=== PATIENT | female | born 1980 | race Caucasian/White ===

== ENCOUNTER 2017-04-15 10:19 | Emergency (ER) | payer SELFPAY ==
[2017-04-15 11:04] LABS: Basophils % (Auto) 0.4 % (0.0-1.8); Eosinophils % (Auto) 0.2 % (0.0-4.3); Hematocrit 38.7 % (30.3-42.9); Hemoglobin 12.9 gm/dl (10.1-14.3); Mean Corpuscular HGB Conc 33 % (30-34); Mean Corpuscular Hemoglobin 31 pg (28-32); Mean Corpuscular Volume 92 fl (79-97); Platelet Count 175 K/mm3 (140-440); Red Blood Count 4.21 M/mm3 (3.65-5.03); Red Cell Distribution Width 12.5 % (13.2-15.2); White Blood Count 3.3 K/mm3 (4.5-11.0)
[2017-04-15 11:24] LABS: Alanine Aminotransferase 14 units/L (7-56); Alkaline Phosphatase 74 units/L (35-129); Anion Gap 17 mmol/L; BUN/Creatinine Ratio 11.66; Blood Urea Nitrogen 7 mg/dL (7-17); Calcium 8.5 mg/dL (8.4-10.2); Carbon Dioxide 23 mmol/L (22-30); Glucose 91 mg/dL (65-100); Lipase 54 units/L (13-60); Potassium 3.6 mmol/L (3.6-5.0); Sodium 137 mmol/L (137-145)
[2017-04-15 11:25] LABS: Bilirubin,Urine NEG (Negative); Blood,Urine NEG (Negative); Ketones,Urine NEG (Negative); Leukocyte Esterase,Urine SM (Negative); Mucus,Urine 3+ /HPF; Nitrite,Urine NEG (Negative); Urobilinogen,Urine < 2.0 mg/dL (<2.0)
[2017-04-15] MEDS ORDERED: ZOFRAN IV ONE (11:46)
[2017-04-15] MEDS ORDERED: NACL 0.9% 1000 ML 1,000 ML IV ONE (11:46)
--- NOTE | 2017-04-15 11:53 | Emergency Department Report ---
HPI - General Chief Complaint: Nausea/Vomiting/Diarrhea Time Seen by Provider: 04/15/17 11:31 - HPI HPI: Room 8 The patient is a 36-year-old female presenting with chief complaint of feeling weak and tired. Patient states for one week she has felt weak and tired. Patient states he lost approximately 20 pounds over the past 2 months. Patient admits to subjective fever. Patient states for the past 2 days she's had nausea and vomiting and possible diarrhea. Patient complains of pain in the left side for one month which has been intermittent. Location: [see above] Duration: [see above] Quality: Fatigue Severity: Currently 0/10 Modifying factors: [see above] Context: [see above] Mode of transportation: Unknown ED Past Medical Hx - Past Medical History Hx Hypertension: Yes (stopped meds last year) Additional medical history: Sarcoidosis - Surgical History Past Surgical History?: No Additional Surgical History: lithotripsy 2014 - Family History Family history: no significant - Social History Smoking Status: Current Every Day Smoker (1/3 pack per day) Substance Use Type: None (denies illicit drug use) - Medications Home Medications: Home Medications Medication Instructions Recorded Confirmed Last Taken Type Nitrofurantoin [place]/M-Cryst 100 mg PO Q12HR #14 capsule 04/15/17 Unknown Rx [Macrobid CAP] Ondansetron [Zofran ODT TAB] 8 mg PO Q8HR #20 tab.rapdis 04/15/17 Unknown Rx Vit-Fe Fumar-FA [ 1 tab PO QDAY #90 tablet 04/15/17 Unknown Rx Vitamin] ED Review of Systems ROS: Stated complaint: N/V X 1 WK Other details as noted in HPI Comment: All other systems reviewed and negative Constitutional: fever, malaise. denies: chills Eyes: denies: eye pain, eye discharge, vision change ENT: denies: ear pain, throat pain Respiratory: cough (chronic dry cough times multiple years). denies: shortness of breath, wheezing Cardiovascular: denies: chest pain, palpitations Endocrine: no symptoms reported Gastrointestinal: nausea, vomiting, diarrhea Genitourinary: denies: urgency, dysuria, discharge Musculoskeletal: back pain Skin: denies: rash, lesions Neurological: denies: headache, weakness, paresthesias Psychiatric: denies: anxiety, depression Hematological/Lymphatic: denies: easy bleeding, easy bruising Physical Exam - Physical Exam Vital Signs: Vital Signs 04/15/17 10:33 Temperature 98.6 F Pulse Rate 66 Respiratory 18 Rate Blood Pressure 127/94 O2 Sat by Pulse 98 Oximetry Physical Exam: GENERAL: The patient is well-developed well-nourished female lying on stretcher not appearing to be in acute distress. [] HEENT: Normocephalic. Atraumatic. Extraocular motions are intact. Patient has moist mucous membranes. NECK: Supple. Trachea midline CHEST/LUNGS: Clear to auscultation. There is no respiratory distress noted. HEART/CARDIOVASCULAR: Regular. There is no tachycardia. There is no gallop rub or murmur. ABDOMEN: Abdomen is soft, with mild discomfort to palpation in the right lower quadrant. There is no rebound or guarding. Patient has normal bowel sounds. There is no abdominal distention. SKIN: There is no rash. There is no edema. There is no diaphoresis. NEURO: The patient is awake, alert, and oriented. The patient is cooperative. The patient has normal speech MUSCULOSKELETAL: There is no CVA tenderness. There is no evidence of acute injury. ED Course Vital Signs 04/15/17 10:33 Temperature 98.6 F Pulse Rate 66 Respiratory 18 Rate Blood Pressure 127/94 O2 Sat by Pulse 98 Oximetry ED Medical Decision Making - Lab Data Result diagrams: 04/15/17 10:54 04/15/17 10:54 Laboratory Tests 04/15/17 04/15/17 04/15/17 10:47 10:54 10:54 WBC 3.3 L RBC 4.21 Hgb 12.9 Hct 38.7 MCV 92 MCH 31 MCHC 33 RDW 12.5 L Plt Count 175 Lymph % (Auto) 35.6 H [place] % (Auto) 15.4 H Eos % (Auto) 0.2 Baso % (Auto) 0.4 Lymph # 1.2 [place] # 0.5 Eos # 0.0 Baso # 0.0 Seg Neutrophils % 48.4 Seg Neutrophils # 1.6 L Sodium 137 Potassium 3.6 Chloride 101.0 Carbon Dioxide 23 Anion Gap 17 BUN 7 Creatinine 0.6 L Estimated GFR > 60 BUN/Creatinine Ratio 11.66 Glucose 91 Calcium 8.5 Total Bilirubin 0.40 AST 20 ALT 14 Alkaline Phosphatase 74 Total Protein 8.0 Albumin 4.0 Albumin/Globulin Ratio 1.0 Lipase 54 TSH Free T4 HCG, Qual HCG, Quant Urine Color Yellow Urine Turbidity Clear Urine pH 6.0 Ur Specific [place] 1.021 Urine Protein 100 mg/dl Urine Glucose (UA) Neg Urine Ketones Neg Urine Blood Neg Urine Nitrite Neg Urine Bilirubin Neg Urine Urobilinogen < 2.0 Ur Leukocyte Esterase Sm Urine WBC (Auto) 23.0 H Urine RBC (Auto) 10.0 U Epithel Cells (Auto) 2.0 Urine Mucus 3+ 04/15/17 04/15/17 04/15/17 10:54 11:40 11:40 WBC RBC Hgb Hct MCV MCH MCHC RDW Plt Count Lymph % (Auto) [place] % (Auto) Eos % (Auto) Baso % (Auto) Lymph # [place] # Eos # Baso # Seg Neutrophils % Seg Neutrophils # Sodium Potassium Chloride Carbon Dioxide Anion Gap BUN Creatinine Estimated GFR BUN/Creatinine Ratio Glucose Calcium Total Bilirubin AST ALT Alkaline Phosphatase Total Protein Albumin Albumin/Globulin Ratio Lipase TSH 1.250 Free T4 1.31 HCG, Qual Positive HCG, Quant 1446 H Urine Color Urine Turbidity Urine pH Ur Specific [place] Urine Protein Urine Glucose (UA) Urine Ketones Urine Blood Urine Nitrite Urine Bilirubin Urine Urobilinogen Ur Leukocyte Esterase Urine WBC (Auto) Urine RBC (Auto) U Epithel Cells (Auto) Urine Mucus - Radiology Data Radiology results: report reviewed (pelvic ultrasound), image reviewed (pelvic ultrasound) Pelvic ultrasound (rubber radiologist)-probable uterine gestational sac. Follow -up beta hCG or ultrasound recommended. - Differential Diagnosis , ectopic , hypothyroidism, immunocompromise Critical care attestation.: If time is entered above; I have spent that time in minutes in the direct care of this critically ill patient, excluding procedure time. ED Disposition Clinical Impression: , Nausea & vomiting, Leukopenia, UTI (urinary tract infection) Disposition: DC-01 TO HOME OR SELFCARE Is pt being admited?: No Does the pt Need Aspirin: No Condition: Stable Instructions: (ED) Additional Instructions: Return to the emergency department immediately should you develop worsening symptoms, fever, inability to tolerate food or liquid or any other concerns. Prescriptions: Nitrofurantoin [place]/M-Cryst [Macrobid CAP] 100 mg PO Q12HR #14 capsule Ondansetron [Zofran ODT TAB] 8 mg PO Q8HR #20 tab.rapdis Vit-Fe Fumar-FA [ Vitamin] 1 tab PO QDAY #90 tablet Referrals: DELPHINE MCCORMICK MD [Staff Physician] - 3-5 Days MARIPOSA CHILDS MD [Staff Physician] - [place] (Dr. Childs is an [employer]. Please follow up with him further evaluation of your ) Time of Disposition: 14:25
[2017-04-15 12:24] VITALS: BP 129/84
--- NOTE | 2017-04-15 14:20 | Ultrasound Report ---
FINAL REPORT EXAM: US OB \T\lt; = 14 WEEKS FETUS HISTORY: left flank pain, TECHNIQUE: Real time transabdominal and transvaginal pelvic ultrasound. Initially, transabdominal scanning was performed. Subsequently, transvaginal scanning was performed to better evaluate the uterus and ovaries. PRIORS: None FINDINGS: Intrauterine fluid collection with decidual reaction probably represents an early gestational sac. pole and yolk sac are not seen, however. No cardiac activity apparent. Estimated age 5 weeks 1 day, sonographic EDC 12/15/2017. Small uterine fibroid measures less than a centimeter in size. Right ovary measures 3.9 x 2.8 x 2.4 cm and contains a complex 3.2 cm lesion likely a corpus luteum. Left ovary measures 3.1 x 1.6 x 3.6 cm and appears normal. IMPRESSION: 1. Probable intrauterine gestational sac. Follow-up beta hCG or ultrasound recommended.
--- NOTE | 2017-04-15 14:21 | Ultrasound Report ---
FINAL REPORT EXAM: US OB TRANSVAGINAL HISTORY: left flank pain, TECHNIQUE: Real time transabdominal and transvaginal pelvic ultrasound. Initially, transabdominal scanning was performed. Subsequently, transvaginal scanning was performed to better evaluate the uterus and ovaries. PRIORS: None FINDINGS: Intrauterine fluid collection with decidual reaction probably represents an early gestational sac. pole and yolk sac are not seen, however. No cardiac activity apparent. Estimated age 5 weeks 1 day, sonographic EDC 12/15/2017. Small uterine fibroid measures less than a centimeter in size. Right ovary measures 3.9 x 2.8 x 2.4 cm and contains a complex 3.2 cm lesion likely a corpus luteum. Left ovary measures 3.1 x 1.6 x 3.6 cm and appears normal. IMPRESSION: 1. Probable intrauterine gestational sac. Follow-up beta hCG or ultrasound recommended.
== END 2017-04-15 15:12 | disposition home or self-care (01) ==
LOC: ED 10:19
DX: O23.41 Unspecified infection of urinary tract in pregnancy, first trimester (principal); O99.331 Smoking (tobacco) complicating pregnancy, first trimester; D72.819 Decreased white blood cell count, unspecified; Z3A.01 Less than 8 weeks gestation of pregnancy; I10 Essential (primary) hypertension
CPT/HCPCS: 36415; 76801; 76817; 80053; 81001; 83690; 84439; 84443; 84702; 84703; 85025; 96361; 96374; 99284; J2405; J7030

== ENCOUNTER 2017-04-19 02:54 | Emergency (ER) | payer SELFPAY ==
[2017-04-19 03:33] VITALS: BP 110/70
[2017-04-19 04:39] LABS: Hematocrit 35.4 % (30.3-42.9); Hemoglobin 11.7 gm/dl (10.1-14.3); Mean Corpuscular HGB Conc 33 % (30-34); Mean Corpuscular Hemoglobin 31 pg (28-32); Mean Corpuscular Volume 92 fl (79-97); Platelet Count 170 K/mm3 (140-440); Red Blood Count 3.84 M/mm3 (3.65-5.03); Red Cell Distribution Width 12.4 % (13.2-15.2); White Blood Count 3.4 K/mm3 (4.5-11.0)
[2017-04-19 04:58] LABS: Alanine Aminotransferase 12 units/L (7-56); Albumin 3.8 g/dL (3.9-5); Alkaline Phosphatase 62 units/L (35-129); Anion Gap 19 mmol/L; Blood Urea Nitrogen 9 mg/dL (7-17); Calcium 8.8 mg/dL (8.4-10.2); Carbon Dioxide 22 mmol/L (22-30); Chloride 101.8 mmol/L (98-107); Glucose 99 mg/dL (65-100); Lipase 98 units/L (13-60); Potassium 3.5 mmol/L (3.6-5.0); Sodium 139 mmol/L (137-145); Total Protein 7.5 g/dL (6.3-8.2)
[2017-04-19 05:01] LABS: Basophils % (Auto) 0.4 % (0.0-1.8); Eosinophils % (Auto) 1.3 % (0.0-4.3)
[2017-04-19 05:02] LABS: Diff Status Complete
[2017-04-19] MEDS ORDERED: XANAX ONE (07:45)
== END 2017-04-19 03:50 | disposition left against medical advice (07) ==
LOC: ED 02:54
DX: R10.9 Unspecified abdominal pain (principal); R11.2 Nausea with vomiting, unspecified; Z53.21 Procedure and treatment not carried out due to patient leaving prior to being seen by health care provider
CPT/HCPCS: 36415; 80053; 83690; 85025

== ENCOUNTER 2017-05-09 10:42 | Emergency (ER) | payer SELFPAY ==
[2017-05-09 10:57] VITALS: BP 133/94
[2017-05-09 11:17] LABS: Basophils % (Auto) 0.5 % (0.0-1.8); Eosinophils % (Auto) 0.7 % (0.0-4.3); Hemoglobin 12.5 gm/dl (10.1-14.3); Mean Corpuscular HGB Conc 33 % (30-34); Mean Corpuscular Hemoglobin 31 pg (28-32); Mean Corpuscular Volume 93 fl (79-97); Platelet Count 227 K/mm3 (140-440); Red Blood Count 4.09 M/mm3 (3.65-5.03)
[2017-05-09 11:37] LABS: Alanine Aminotransferase 12 units/L (7-56); Albumin 4.3 g/dL (3.9-5); Albumin/Globulin Ratio 1.2 %; Alkaline Phosphatase 52 units/L (35-129); Anion Gap 19 mmol/L; Blood Urea Nitrogen 10 mg/dL (7-17); Calcium 9.2 mg/dL (8.4-10.2); Carbon Dioxide 23 mmol/L (22-30); Chloride 98.8 mmol/L (98-107); Glucose 116 mg/dL (65-100); Potassium 3.7 mmol/L (3.6-5.0); Sodium 137 mmol/L (137-145); Total Protein 7.9 g/dL (6.3-8.2)
[2017-05-09] MEDS ORDERED: ZOFRAN ODT PO ONE (15:02)
[2017-05-09] MEDS ORDERED: REGLAN PO ONE (16:10)
--- NOTE | 2017-05-09 16:11 | Emergency Department Report ---
ED General Adult HPI - General Chief complaint: Nausea/Vomiting/Diarrhea Stated complaint: VOMITING Time Seen by Provider: 05/09/17 15:53 Source: patient Mode of arrival: Ambulatory Limitations: No Limitations - History of Present Illness Initial comments: is a 36-year-old female no significant past medical problems who presents with nausea and vomiting this been going on for the last couple days. Patient states that her symptoms are severe. Food makes it worse rest makes it better. Patient states that her vomit has been nonbloody nonbilious. Patient denies being in any abdominal pain. Patient has also had some light diarrhea. She denies having any fevers or chills. The onset of her vomiting was gradual she is vomited multiple times and she states she is not able to keep down by mouth. - Related Data Previous Rx's Medication Instructions Recorded Last Taken Type Nitrofurantoin [place]/M-Cryst 100 mg PO Q12HR #14 capsule 04/15/17 Unknown Rx [Macrobid CAP] Ondansetron [Zofran ODT TAB] 8 mg PO Q8HR #20 tab.rapdis 04/15/17 Unknown Rx Vit-Fe Fumar-FA [ 1 tab PO QDAY #90 tablet 04/15/17 Unknown Rx Vitamin] Metoclopramide HCl [Reglan TAB] 5 mg PO Q8HR PRN #25 tablet 05/09/17 Unknown Rx Allergies Allergy/AdvReac Type Severity Reaction Status Date / Time codeine AdvReac Hives Verified 04/15/17 10:33 ED Review of Systems ROS: Stated complaint: VOMITING Other details as noted in HPI Constitutional: denies: chills, fever Eyes: denies: eye pain, eye discharge, vision change ENT: denies: ear pain, throat pain Respiratory: denies: cough, shortness of breath, wheezing Cardiovascular: denies: chest pain, palpitations Endocrine: no symptoms reported Gastrointestinal: nausea, vomiting, diarrhea. denies: abdominal pain Genitourinary: denies: urgency, dysuria, discharge Musculoskeletal: denies: back pain, joint swelling, arthralgia Skin: denies: rash, lesions Neurological: denies: headache, weakness, paresthesias Psychiatric: denies: anxiety, depression Hematological/Lymphatic: denies: easy bleeding, easy bruising ED Past Medical Hx - Past Medical History Hx Hypertension: Yes (stopped meds last year) Additional medical history: Sarcoidosis - Surgical History Additional Surgical History: lithotripsy 2015 - Social History Smoking Status: Former Smoker Substance Use Type: None - Medications Home Medications: Home Medications Medication Instructions Recorded Confirmed Last Taken Type Nitrofurantoin [place]/M-Cryst 100 mg PO Q12HR #14 capsule 04/15/17 Unknown Rx [Macrobid CAP] Ondansetron [Zofran ODT TAB] 8 mg PO Q8HR #20 tab.rapdis 04/15/17 Unknown Rx Vit-Fe Fumar-FA [ 1 tab PO QDAY #90 tablet 04/15/17 Unknown Rx Vitamin] Metoclopramide HCl [Reglan TAB] 5 mg PO Q8HR PRN #25 tablet 05/09/17 Unknown Rx ED Physical Exam - General Limitations: No Limitations General appearance: alert, in no apparent distress - Head Head exam: Present: atraumatic, normocephalic - Eye Eye exam: Present: normal appearance - ENT ENT exam: Present: mucous membranes moist - Neck Neck exam: Present: normal inspection - Respiratory Respiratory exam: Present: normal lung sounds bilaterally. Absent: respiratory distress - Cardiovascular Cardiovascular Exam: Present: regular rate, normal rhythm. Absent: systolic murmur, diastolic murmur, rubs, gallop - GI/Abdominal GI/Abdominal exam: Present: soft, normal bowel sounds - Extremities Exam Extremities exam: Present: normal inspection - Back Exam Back exam: Present: normal inspection - Neurological Exam Neurological exam: Present: alert, oriented X3 - Psychiatric Psychiatric exam: Present: normal affect, normal mood - Skin Skin exam: Present: warm, dry, intact, normal color. Absent: rash ED Course Vital Signs 05/09/17 10:53 Temperature 97.8 F Pulse Rate 91 H Respiratory 18 Rate Blood Pressure 133/94 O2 Sat by Pulse 99 Oximetry ED Medical Decision Making - Lab Data Result diagrams: 05/09/17 11:03 05/09/17 11:03 Lab Results 05/09/17 05/09/17 05/09/17 Range/Units 11:03 11:03 16:08 WBC 5.0 (4.5-11.0) K/mm3 RBC 4.09 (3.65-5.03) M/mm3 Hgb 12.5 (10.1-14.3) gm/dl Hct 38.0 (30.3-42.9) % MCV 93 (79-97) fl MCH 31 (28-32) pg MCHC 33 (30-34) % RDW 13.0 L (13.2-15.2) % Plt Count 227 (140-440) K/mm3 Lymph % (Auto) 28.8 (13.4-35.0) % [place] % (Auto) 11.5 H (0.0-7.3) % Eos % (Auto) 0.7 (0.0-4.3) % Baso % (Auto) 0.5 (0.0-1.8) % Lymph # 1.4 (1.2-5.4) K/mm3 [place] # 0.6 (0.0-0.8) K/mm3 Eos # 0.0 (0.0-0.4) K/mm3 Baso # 0.0 (0.0-0.1) K/mm3 Seg Neutrophils % 58.5 (40.0-70.0) % Seg Neutrophils # 2.9 (1.8-7.7) K/mm3 Sodium 137 (137-145) mmol/L Potassium 3.7 (3.6-5.0) mmol/L Chloride 98.8 (98-107) mmol/L Carbon Dioxide 23 (22-30) mmol/L Anion Gap 19 mmol/L BUN 10 (7-17) mg/dL Creatinine 0.5 L (0.7-1.2) mg/dL Estimated GFR > 60 ml/min BUN/Creatinine Ratio 20.00 % Glucose 116 H (65-100) mg/dL Calcium 9.2 (8.4-10.2) mg/dL Total Bilirubin 0.60 (0.1-1.2) mg/dL AST 15 (5-40) units/L ALT 12 (7-56) units/L Alkaline Phosphatase 52 (35-129) units/L Total Protein 7.9 (6.3-8.2) g/dL Albumin 4.3 (3.9-5) g/dL Albumin/Globulin Ratio 1.2 % Urine Color Yellow (Yellow) Urine Turbidity Clear (Clear) Urine pH 6.0 (5.0-7.0) Ur Specific [place] 1.023 (1.003-1.030) Urine Protein 30 mg/dl (Negative) mg/dL Urine Glucose (UA) Neg (Negative) mg/dL Urine Ketones Neg (Negative) mg/dL Urine Blood Neg (Negative) Urine Nitrite Neg (Negative) Urine Bilirubin Neg (Negative) Urine Urobilinogen < 2.0 (<2.0) mg/dL Ur Leukocyte Esterase Mod (Negative) Urine WBC (Auto) 12.0 H (0.0-6.0) /HPF Urine RBC (Auto) 2.0 (0.0-6.0) /HPF U Epithel Cells (Auto) 14.0 H (0-13.0) /HPF Urine Mucus Few /HPF - Medical Decision Making Chief medical diagnosis: Gastroenteritis Differential medical diagnosis: Pancreatitis, peptic ulcer, hypokalemia, hypernatremia I will get CBC, CMP, urinalysis, oral antiemetics and I will evaluate and see if the patient can go home. She has feeling better after oral anti-emetics. I will send the patient home. Critical care attestation.: If time is entered above; I have spent that time in minutes in the direct care of this critically ill patient, excluding procedure time. ED Disposition Clinical Impression: Nausea and vomiting Qualifiers: Vomiting type: unspecified Vomiting Intractability: non-intractable Qualified Code(s): R11.2 - Nausea with vomiting, unspecified Disposition: DC-01 TO HOME OR SELFCARE Is pt being admited?: No Does the pt Need Aspirin: No Condition: Stable Instructions: Acute Nausea and Vomiting (ED) Prescriptions: Metoclopramide HCl [Reglan TAB] 5 mg PO Q8HR PRN #25 tablet PRN Reason: Nausea Referrals: PRIMARY CARE,MD [Primary Care Provider] - 3-5 Days
[2017-05-09 16:33] LABS: Bilirubin,Urine NEG (Negative); Blood,Urine NEG (Negative); Ketones,Urine NEG (Negative); Leukocyte Esterase,Urine MOD (Negative); Mucus,Urine FEW /HPF; Nitrite,Urine NEG (Negative); Urobilinogen,Urine < 2.0 mg/dL (<2.0)
== END 2017-05-09 17:25 | disposition home or self-care (01) ==
LOC: ED 10:42
DX: R11.2 Nausea with vomiting, unspecified (principal); Z88.6 Allergy status to analgesic agent; Z87.891 Personal history of nicotine dependence
CPT/HCPCS: 36415; 80053; 81001; 85025; 99283; Q0162

== ENCOUNTER 2017-09-01 02:39 | Emergency (ER) | payer OTHER ==
[2017-09-01 03:13] VITALS: BP 119/69
--- NOTE | 2017-09-01 04:19 | XRay Report ---
FINAL REPORT EXAM: XR FOOT 2V LT HISTORY: Left foot pain and swelling post injury COMPARISONS: None. FINDINGS: Two nonweightbearing views left foot There is subtle cortical irregularity at the lateral base of the 1st distal phalanx and at the plantar aspect of the 1st distal phalanx midportion on lateral view. No other potential acute fracture. Remaining joint spaces are unremarkable. A developmental versus remote posttraumatic ossicle measuring up to 5 millimeters is noted at the distal aspect of the lateral malleolus. IMPRESSION: Possible minimally displaced fracture at the base of the 1st distal phalanx.
[2017-09-01] MEDS ORDERED: TYLENOL ONE (05:30)
[2017-09-01] MEDS ORDERED: TYLENOL PO ONE (05:31)
--- NOTE | 2017-09-01 07:23 | Emergency Department Report ---
ED Lower Extremity HPI - General Chief Complaint: Extremity Injury, Lower Stated Complaint: LEFT TOE PAIN Time Seen by Provider: 09/01/17 07:02 Source: patient Mode of arrival: Ambulatory Limitations: No Limitations - History of Present Illness Initial Comments: This is a 37-year-old female nontoxic, well nourished in appearance, no acute signs of distress presents to the ED with c/o of left great toe pain 1 week. Patient stated she kicked a space heater out of anger and developed pain and today she has been walking on it but denies follow-up with a provider. Stated pain has increased so she came into the ER for evaluation. Patient denies any numbness, tingling, fever, chills, nausea, vomiting, chest pain, shortness of breath, joint swelling, joint redness, decreased gait. Patient denies past medical history besides hypertension. Allergies include codeine. MD Complaint: foot injury -: week(s) (1) Injury: Toes: Left (first phalanx) Type of Injury: blunt Place: home Severity: mild Severity scale (0 -10): 8 Improves With: nothing Worsens With: nothing Context: direct blow Associated Symptoms: swelling, able to partially bear weight, ambulatory. denies: snap/pop sensation, numbness, tingling, unable to bear weight - Related Data Previous Rx's Medication Instructions Recorded Last Taken Type Nitrofurantoin Izard/M-Cryst 100 mg PO Q12HR #14 capsule 04/15/17 Unknown Rx [Macrobid CAP] Ondansetron [Zofran ODT TAB] 8 mg PO Q8HR #20 tab.rapdis 04/15/17 Unknown Rx Vit-Fe Fumar-FA [ 1 tab PO QDAY #90 tablet 04/15/17 Unknown Rx Vitamin] Metoclopramide HCl [Reglan TAB] 5 mg PO Q8HR PRN #25 tablet 05/09/17 Unknown Rx Acetaminophen [Acetaminophen 8 650 mg PO Q8H #20 tablet.er 09/01/17 Unknown Rx Hour] Allergies Allergy/AdvReac Type Severity Reaction Status Date / Time codeine AdvReac Hives Verified 04/15/17 10:33 ED Review of Systems ROS: Stated complaint: LEFT TOE PAIN Other details as noted in HPI Constitutional: denies: chills, fever Eyes: denies: eye pain, eye discharge, vision change ENT: denies: ear pain, throat pain Respiratory: denies: cough, shortness of breath, wheezing Cardiovascular: denies: chest pain, palpitations Endocrine: no symptoms reported Gastrointestinal: denies: abdominal pain, nausea, diarrhea Genitourinary: denies: urgency, dysuria, discharge Musculoskeletal: denies: back pain, joint swelling, arthralgia Skin: denies: rash, lesions Neurological: denies: headache, weakness, paresthesias Psychiatric: denies: anxiety, depression Hematological/Lymphatic: denies: easy bleeding, easy bruising ED Past Medical Hx - Past Medical History Previous Medical History?: Yes Hx Hypertension: Yes (stopped meds last year) Additional medical history: Sarcoidosis - Surgical History Past Surgical History?: Yes Additional Surgical History: lithotripsy 2014 - Social History Smoking Status: Never Smoker Substance Use Type: None - Medications Home Medications: Home Medications Medication Instructions Recorded Confirmed Last Taken Type Nitrofurantoin Izard/M-Cryst 100 mg PO Q12HR #14 capsule 04/15/17 Unknown Rx [Macrobid CAP] Ondansetron [Zofran ODT TAB] 8 mg PO Q8HR #20 tab.rapdis 04/15/17 Unknown Rx Vit-Fe Fumar-FA [ 1 tab PO QDAY #90 tablet 04/15/17 Unknown Rx Vitamin] Metoclopramide HCl [Reglan TAB] 5 mg PO Q8HR PRN #25 tablet 05/09/17 Unknown Rx Acetaminophen [Acetaminophen 8 650 mg PO Q8H #20 tablet.er 09/01/17 Unknown Rx Hour] ED Physical Exam - General Limitations: No Limitations General appearance: alert, in no apparent distress - Head Head exam: Present: atraumatic, normocephalic - Eye Eye exam: Present: normal appearance Pupils: Present: normal accommodation - ENT ENT exam: Present: normal exam, normal orophraynx, mucous membranes moist, TM's normal bilaterally, normal external ear exam - Neck Neck exam: Present: normal inspection, full ROM. Absent: tenderness, meningismus, lymphadenopathy, thyromegaly - Respiratory Respiratory exam: Present: normal lung sounds bilaterally. Absent: respiratory distress, wheezes, rales, rhonchi, stridor, chest wall tenderness, accessory muscle use, decreased breath sounds, prolonged expiratory - Cardiovascular Cardiovascular Exam: Present: regular rate, normal rhythm, normal heart sounds. Absent: bradycardia, tachycardia, irregular rhythm, systolic murmur, diastolic murmur, rubs, gallop - GI/Abdominal GI/Abdominal exam: Present: soft, normal bowel sounds. Absent: distended, tenderness, guarding, rebound, rigid, diminished bowel sounds - Extremities Exam Extremities exam: Present: normal inspection, full ROM, tenderness, normal capillary refill. Absent: pedal edema, joint swelling, calf tenderness - Expanded Lower Extremity Exam Left Hip exam: Present: normal inspection, full ROM Upper Leg exam: Present: normal inspection, full ROM Knee exam: Present: normal inspection, full ROM Lower Leg exam: Present: normal inspection, full ROM Ankle exam: Present: normal inspection, full ROM Foot/Toe exam: Present: normal inspection, full ROM, tenderness, swelling. Absent: abrasion, laceration, ecchymosis, deformity, crepidus, dislocation, erythema, amputation, puncture wound, foreign body, calcaneal tenderness, tenderness at base of 5th metatarsal, nail avulsion, subungual hematoma Neuro vascular tendon exam: Present: no vascular compromise. Absent: pulse deficit, abnormal cap refill, motor deficit, sensory deficit, tendon deficit, extremity cold to touch, pallor, abnormal 2-point discrimination, decreased fine /light touch, foot drop, peroneal nerve deficit, significant pain with passive ROM of distal joint Gait: Positive: observed and normal 1 - Pain - Back Exam Back exam: Present: normal inspection, full ROM - Neurological Exam Neurological exam: Present: alert, oriented X3, CN II-XII intact, normal gait, reflexes normal - Psychiatric Psychiatric exam: Present: normal affect, normal mood - Skin Skin exam: Present: warm, dry, intact, normal color. Absent: rash ED Course Vital Signs 09/01/17 09/01/17 03:04 03:35 Temperature 98.0 F 98.0 F Pulse Rate 71 73 Respiratory 18 Rate Blood Pressure 119/69 119/69 O2 Sat by Pulse 100 99 Oximetry - Reevaluation(s) Reevaluation #1: 09/01/17 07:24 Patient is speaking in full sentences with no signs of distress noted. ED Lower Extremity MDM - Medical Decision Making This is a 29-year-old female that presents with possible nondisplaced fracture of the base of the first distal phalanx. Patient stable and was examined by me. X-ray has been obtained and dictated by radiologist. Patient is notified of x-ray results noted by the patient. Patient received ice in the eD. patient phalanx is Neurovascular intact. Patient also received Tylenol prior to my interview. A aisha splint of the first and second phalanx has been obtained and patient received a surgical orthopedic postop shoe. Post aisha splint the toe is neurovascular intact and patient denies any numbness and is able to move the phalanx and capillary refill less than 2 seconds. Patient was instructed to Rice therapy. Due to patient being 24 weeks patient received Tylenol at discharge. Patient was instructed Follow-up with a orthopedic doctor in 3-5 days or if symptoms worsen and continue return to emergency room as soon as possible. At time time of discharge, the patient does not seem toxic or ill in appearance. No acute signs of distress noted. Patient agrees to discharge treatment plan of care. No further questions noted by the patient. Critical care attestation.: If time is entered above; I have spent that time in minutes in the direct care of this critically ill patient, excluding procedure time. ED Disposition Clinical Impression: Phalanx of the foot fracture Qualifiers: Encounter type: initial encounter Toe: great toe Fracture type: closed Phalanx : distal Fracture alignment: displaced Laterality: left Qualified Code(s): S92.422A - Displaced fracture of distal phalanx of left great toe, initial encounter for closed fracture Disposition: - TO HOME OR SELFCARE Is pt being admited?: No Does the pt Need Aspirin: No Condition: Stable Instructions: Toe Fracture (ED), RICE Therapy (ED), Acetaminophen (By mouth) Additional Instructions: Follow-up with a orthopedic doctor in 3-5 days or if symptoms worsen and continue return to emergency room as soon as possible Rest, elevate and ice extremity Prescriptions: Acetaminophen [Acetaminophen 8 Hour] 650 mg PO Q8H #20 tablet.er Referrals: SHANIQUA THAKKAR MD [Primary Care Provider] - 3-5 Days JOCELYN DIAZ MD [Staff Physician] - 3-[address] [facility] [Outside] - 3-5 Days Forms: Work/School Release Form(ED)
== END 2017-09-01 07:51 | disposition home or self-care (01) ==
LOC: ED 02:39
DX: S92.422A Displaced fracture of distal phalanx of left great toe, initial encounter for closed fracture (principal); I10 Essential (primary) hypertension; Z88.6 Allergy status to analgesic agent; W22.8XXA Striking against or struck by other objects, initial encounter; Y93.89 Activity, other specified; Y92.89 Other specified places as the place of occurrence of the external cause; Y99.8 Other external cause status
CPT/HCPCS: 99283

== ENCOUNTER 2017-09-03 13:18 | Outpatient (CLI) | payer OTHER ==
[2017-09-03] MEDS ORDERED: LACTATED RINGERS 500 ML IV ONE (13:27)
[2017-09-03 14:36] LABS: Bacteria,Urine 1+ /HPF (Negative); Bilirubin,Urine NEG (Negative); Blood,Urine NEG (Negative); Color,Urine Amber (Yellow); Hyaline Casts,Urine 1 /LPF; Mucus,Urine FEW /HPF; Nitrite,Urine NEG (Negative)
[2017-09-03 15:23] VITALS: BP 126/71
== END 2017-09-03 15:43 | disposition home or self-care (01) ==
LOC: TRG 13:18
PROVIDERS: ATTEND Obstetrics & Gynecology
DX: O09.522 Supervision of elderly multigravida, second trimester (principal); O99.332 Smoking (tobacco) complicating pregnancy, second trimester; Z3A.25 25 weeks gestation of pregnancy
CPT/HCPCS: 59025; 81001; 87086; 96360; J7120; 87076; 87186

== ENCOUNTER 2017-11-29 12:37 | Outpatient (CLI) | payer MEDICAID ==
[2017-11-29 15:51] VITALS: BP 139/86
--- NOTE | 2017-11-29 16:08 | Ultrasound Report ---
FINAL REPORT PROCEDURE: US OB BPP WO NON-STRESS TECHNIQUE: Sonographic evaluation for breathing, movement, tone, and amniotic fluid volume was performed. CPT 67705 HISTORY: WELL BEING COMPARISON: No prior studies are available for comparison. FINDINGS: Single living intrauterine gestation visualized vertex presentation with a heart rate of 145 beats per minute. Amniotic fluid volume: Normal-score 2. At least one vertical pocket > 2 cm or more in vertical axis. breathing: Normal-score 2. movement: Normal-score 2. tone: Normal. Score: 8 of 8. Further evaluation was neither requested nor performed. IMPRESSION: Normal biophysical profile.
--- NOTE | 2017-11-29 16:11 | Ultrasound Report ---
FINAL REPORT PROCEDURE: US OB LIMITED to evaluate amniotic fluid index TECHNIQUE: Real-time limited sonographic examination was performed for evaluation of amniotic fluid index for each fetus with image documentation (1 or more fetuses). CPT 09537 HISTORY: WELL BEING COMPARISON: No prior studies are available for comparison. FINDINGS: There is a single living intrauterine gestation currently visualized in the vertex presentation with a heart rate of 145 beats per minute. Both subjectively and by amniotic fluid index the amount of amniotic fluid appears normal. The amniotic fluid index is 11.8 centimeters. Detailed exam of the fetus was not performed. measurements were not obtained. Only a portion of the placenta was visualize which showed no evidence of placenta abruption. The internal cervical os was not visualized. IMPRESSION: Single living intrauterine gestation visualized currently vertex presentation with a heart rate of 145 beats per minute. Both subjectively and by amniotic fluid index the amount of amniotic fluid appears normal. Further evaluation was neither requested nor performed.
== END 2017-11-29 16:16 | disposition home or self-care (01) ==
LOC: TRG 12:37 → LD 12:38 → TRG 16:16
PROVIDERS: ATTEND Obstetrics & Gynecology
DX: O09.523 Supervision of elderly multigravida, third trimester (principal); O99.333 Smoking (tobacco) complicating pregnancy, third trimester; F17.200 Nicotine dependence, unspecified, uncomplicated; O47.1 False labor at or after 37 completed weeks of gestation; Z3A.37 37 weeks gestation of pregnancy
CPT/HCPCS: 59025; 76815; 76819

== ENCOUNTER 2017-12-03 16:48 | Inpatient (IN) | payer MEDICAID ==
[2017-12-03] MEDS ORDERED: LACTATED RINGERS 1,000 ML ONE (19:02)
[2017-12-03 19:26] LABS: Hematocrit 37.6 % (30.3-42.9); Hemoglobin 12.5 gm/dl (10.1-14.3); Mean Corpuscular HGB Conc 33 % (30-34); Mean Corpuscular Hemoglobin 30 pg (28-32); Mean Corpuscular Volume 90 fl (79-97); Platelet Count 287 K/mm3 (140-440); Red Blood Count 4.17 M/mm3 (3.65-5.03); Red Cell Distribution Width 13.7 % (13.2-15.2)
[2017-12-03 19:41] LABS: Bilirubin,Urine NEG (Negative); Blood,Urine NEG (Negative); Color,Urine Yellow (Yellow)
[2017-12-03] MEDS ORDERED: BRETHINE IVP PRN (19:49)
[2017-12-03] MEDS ORDERED: XYLOCAINE 2% INFILTRATI ONE (19:49)
[2017-12-03] MEDS ORDERED: ZOFRAN IV PRN (19:49)
[2017-12-03] MEDS ORDERED: PHENERGAN PO PRN (19:49)
[2017-12-03] MEDS ORDERED: MINERAL OIL PO PRN (19:49)
[2017-12-03] MEDS ORDERED: ePHEDrine SULFATE IV PRN (19:49)
[2017-12-03] MEDS ORDERED: BRETHINE SUB-Q PRN (19:49)
[2017-12-03 19:59] LABS: Alanine Aminotransferase 9 units/L (7-56); Uric Acid 6.7 mg/dL (3.5-7.6)
[2017-12-03] MEDS ORDERED: PITOCin/NS 30 UNIT/500ML 30 UNITS/500 ML BAG IV SCH (20:00)
[2017-12-03] MEDS ORDERED: PITOCin/NS 20 UNIT/1000ML DRIP 20 UNITS/1,000 ML BAG IV SCH (20:00)
--- NOTE | 2017-12-03 20:00 | History and Physical Report ---
History of Present Illness Date of examination: 12/03/17 Date of admission: 12/03/17 16:48 Chief complaint: Induction of labor History of present illness: 37 yo AA Fe EMIL 12/17/2017 38weeks 0 days sent from [facility] for with recommendation for IOL d/t PIH with PEREZ's and dizziness. Pt initiated late care with [facility] at 16w6d. She has been co- mananged with [facility] for CHTN (no meds), Sarcoidosis(no recent episodes), Rheumatoid arthritis, Hx Depression & Bipolar disorder, abnormal QUAD screen ( increased DSR). The patient reported being a daily smoker of cigarettes and Marijuana but stopped with positive test. A positive, rubella Immune, GBS Negtive. Past History Past Medical History: hypertension (PIH), renal disease (Pt reports enlarged Kidneys), kidney stones Past Surgical History: other (Lithotripsy) BUSINESS SUPPORT COORDINATOR History: abnormal PAP smear (ASCUS, HR HPV; plan colpo at visit. ). denies: chlamydia, fibroids, gonorrhea, hepatitis B, hepatitis C, herpes, HIV, syphilis, trichomonas Social history: single, lives with family, smoking (Smoker of cigarettes and marijuana daily, stopped with positive UPT), full code. denies: alcohol abuse, prescription drug abuse, IV drug use - Obstetrical History Expected Date of Delivery: 12/17/17 Actual Gestation: 38 Week(s) 1 Day(s) : 6 Para: 5 Hx # Term Pregnancies: 4 Number of Pregnancies: 1 (32 weeks) Spontaneous Abortions: 0 Induced : 0 Number of Living Children: 5 Medications and Allergies Allergies Allergy/AdvReac Type Severity Reaction Status Date / Time codeine AdvReac Hives Verified 04/15/17 10:33 Home Medications Medication Instructions Recorded Confirmed Last Taken Type Ondansetron [Zofran ODT TAB] 8 mg PO Q8HR #20 tab.rapdis 04/15/17 12/03/1708/27 18:00 Rx Vit-Fe Fumar-FA [ 1 tab PO QDAY #90 tablet 04/15/17 12/03/17 10:00 Rx Vitamin] Metoclopramide HCl [Reglan TAB] 5 mg PO Q8HR PRN #25 tablet 05/09/17 12/03/17 18:00 Rx Acetaminophen [Acetaminophen 8 650 mg PO Q8H #20 tablet.er 09/01/17 12/03/17 Unknown Rx Hour] Doxylamine Succinate [Unisom] 25 mg PO QDAY 12/03/17 12/03/17 12/02/17 17:00 History Active Meds: Active Medications Diphenhydramine HCl (Benadryl) 50 mg PO ONCE ONE Stop: 12/03/17 20:31 Last Admin: 12/03/17 19:51 Dose: 50 mg Ephedrine Sulfate (Ephedrine Sulfate) 10 mg IV Q2M PRN PRN Reason: Hypotension Lactated Ringer's (Lactated Ringers) 1,000 mls @ 125 mls/hr IV DIRECT ALLEN Oxytocin/Sodium Chloride (Pitocin/Ns 20 Unit/1000ml Drip) 20 units in 1,000 mls @ 125 mls/hr IV DIRECT ALLEN Oxytocin/Sodium Chloride (Pitocin/Ns 30 Unit/500ml) 30 units in 500 mls @ 2 mls /hr IV TITR ALLEN; Protocol Lidocaine (Xylocaine 2%) 20 ml INFILTRATI ONCE ONE Stop: 12/03/17 19:50 Mineral Oil (Mineral Oil) 30 ml PO QHS PRN PRN Reason: Constipation Ondansetron HCl (Zofran) 4 mg IV Q8H PRN PRN Reason: Nausea And Vomiting Promethazine HCl (Phenergan) 25 mg PO Q6H PRN PRN Reason: Nausea And Vomiting Terbutaline Sulfate (Brethine) 0.25 mg SUB-Q ONCE PRN PRN Reason: Hyperstimulation/Hypertonicity Terbutaline Sulfate (Brethine) 0.25 mg IVP ONCE PRN PRN Reason: Hyperstimulation/Hypertonicity Review of Systems Eyes: normal appearance Cardiovascular: no chest pain, no lightheadedness, no shortness of breath Respiratory: no shortness of breath Breasts: normal Gastrointestinal: no abdominal pain, no nausea, no diarrhea, no constipation Genitourinary: normal appearance, no vaginal bleeding, no vaginal discharge, no leakage of fluid, no pelvic pain, no genital sores, no contractions Integumentary: pruritis (Reports systemic itching. Has been taking Benadryl at home), no rash, no sores, no lesions Neurological: headaches (Rates pain 7 on 0/10 pain scale), no seizures, no double vision, no loss of vision Psychiatric: anxiety, depression (Hx Suicide attempt), other (Hx Bipolar disorder) - Physical Exam Breasts: Positive: normal Cardiovascular: Regular rate, Normal S1, Normal S2 Lungs: Positive: Clear to auscultation, Normal air movement Abdomen: Positive: normal appearance, soft, normal bowel sounds Genitourinary (Female): Positive: normal external genitalia, normal perenium Vulva: both: normal Vagina: Positive: normal moisture Uterus: Positive: enlarged (Gravid) Extremities: Positive: normal Deep Tendon Reflex Grade: Normal +2 - Obstetrical FHR: category 1 Uterine Contraction Monitor Mode: External Cervical Dilatation: 2 (Per admitting RN) Cervical Effacement Percentage: 50 station: -3 Uterine Contraction Frequency (min): none Uterine Contraction Pattern: Absent Uterine Tone Measurement Phase: Resting Results Result Diagrams: 12/03/17 18:55 12/03/17 18:55 All other labs normal. Assessment and Plan A: , EMIL 12/17/2017, 38w0d AMA 37 yo CHTN (no meds) induced Hypertension Category 1 Tracing GBS Negative P: Admit to L&D PIH labs Pitocin IOL May have IV pain med/epidural PRN Anticipate
[2017-12-03] MEDS ORDERED: BENADRYL PO ONE (20:30)
[2017-12-03] MEDS ORDERED: CERVIDIL VG ONE (20:40)
[2017-12-03] MEDS ORDERED: TYLENOL PO ONE (21:36)
[2017-12-03] MEDS ORDERED: AMBIEN PO PRN (22:21)
--- NOTE | 2017-12-04 09:18 | Progress Note ---
Assessment and Plan - Patient Problems (1) 38 weeks gestation of Current Visit: Yes Status: Acute (2) Gestational HTN Current Visit: Yes Status: Acute Plan to address problem: Toxemia labs were normal. Will continue BP monitoring. and toco monitoring. (3) Kidney disease Current Visit: Yes Status: Acute Subjective - Subjective Date of service: 12/04/17 Principal diagnosis: Gest HTN Interval history: Patient was admitted yesterday for labor induction. She has a history of kidney disease and gestational HTN. Cervidil dose#1 was inserted yesterday. This AM, she denies any PEREZ, visual changes or RUQ pain. She denies any contractions, fluid leakage or bleeding. Objective - Vital Signs Vital Signs: Vital Signs - 12hr 12/04/17 12/04/17 03:30 07:52 Temperature 98.0 F 96.8 F L Pulse Rate 98 H Respiratory 18 18 Rate Blood Pressure 118/85 [Right] O2 Sat by Pulse 98 Oximetry - Exam Cardiovascular: Normal S1, Normal S2 Lungs: Clear to auscultation Vulva: both: normal FHR: category 1 Uterine Contraction Monitor Mode: External Deep Tendon Reflex Grade: Normal +2 - Labs Labs: Abnormal Labs 12/03/17 18:55 Creatinine 0.6 L Laboratory Results - last 24 hr 12/03/17 12/03/17 12/03/17 18:55 18:55 18:55 WBC 7.1 RBC 4.17 Hgb 12.5 Hct 37.6 MCV 90 MCH 30 MCHC 33 RDW 13.7 Plt Count 287 Creatinine 0.6 L Estimated GFR > 60 Uric Acid 6.7 AST 18 ALT 9 Lactate Dehydrogenase 178 Urine Color Urine Turbidity Urine pH Ur Specific [place] Urine Protein Urine Glucose (UA) Urine Ketones Urine Blood Urine Nitrite Urine Bilirubin Urine Urobilinogen Ur Leukocyte Esterase Urine WBC (Auto) Urine RBC (Auto) U Epithel Cells (Auto) Blood Type A POSITIVE Antibody Screen Negative 12/03/17 19:00 WBC RBC Hgb Hct MCV MCH MCHC RDW Plt Count Creatinine Estimated GFR Uric Acid AST ALT Lactate Dehydrogenase Urine Color Yellow Urine Turbidity Clear Urine pH 6.0 Ur Specific [place] 1.017 Urine Protein 30 mg/dl Urine Glucose (UA) Neg Urine Ketones Neg Urine Blood Neg Urine Nitrite Neg Urine Bilirubin Neg Urine Urobilinogen 2.0 Ur Leukocyte Esterase Sm Urine WBC (Auto) 5.0 Urine RBC (Auto) 2.0 U Epithel Cells (Auto) < 1.0 Blood Type Antibody Screen
[2017-12-04] MEDS ORDERED: PITOCin/NS 30 UNIT/500ML 30 UNITS/500 ML BAG IV SCH (11:00)
[2017-12-04] MEDS: LACTATED RINGERS 1,000 ML IV SCH ×2 (11:46→14:15)
[2017-12-04 14:13] VITALS: BP 140/76
--- NOTE | 2017-12-04 17:59 | Progress Note ---
Assessment and Plan - Patient Problems (1) 38 weeks gestation of Current Visit: Yes Status: Acute (2) Gestational HTN Current Visit: Yes Status: Acute Plan to address problem: Toxemia labs were normal. BP has been stable since admission. Patient has been asymptomatic. Tracing has been CAT 1. She has not responded to the cervidil induction. I discussed the findings with her this evening. I told her that if the induction is not working, she would need to be delivered via c/section. She is a multiparous and has had 5 vaginal deliveries, her BP has been stable and she is not pre-eclamptic at this time. Therefore, I recommend that she be discharged home to follow up in 2 days for NST and BPP. I gave her toxemia precautions and I told her that things can change at anytime and she needs to return to the hospital if she breaks her water, has bleeding, or decreased movement, has headaches or visual disturbances. Her family was present and agreed with this plan. (3) Kidney disease Current Visit: Yes Status: Acute Subjective - Subjective Date of service: 12/04/17 Principal diagnosis: Gest HTN Interval history: Patient was admitted yesterday for labor induction. She has been co-managed with [facility] for a history of kidney disease and gestational HTN. BPP was 8/8, KRISHAN was 11.2 yesterday. Cervidil dose#1 was placed last night and removed this AM. She has not had any contraction. Since admission, she denies any PEREZ, visual changes or RUQ pain. She denies any contractions, fluid leakage or bleeding. tracing has been CAT 1. Objective - Vital Signs Vital Signs: Vital Signs - 12hr 12/04/17 12/04/17 12/04/17 07:52 09:32 11:47 Temperature 96.8 F L Pulse Rate 98 H 109 H Respiratory 18 Rate Blood Pressure 118/85 139/85 122/84 [Right] O2 Sat by Pulse 98 Oximetry 12/04/17 14:13 Temperature Pulse Rate Respiratory Rate Blood Pressure 140/76 [Right] O2 Sat by Pulse Oximetry - Exam Cardiovascular: Normal S1, Normal S2 Lungs: Clear to auscultation Vulva: both: normal FHR: category 1 Uterine Contraction Monitor Mode: External Cervical Dilatation: 2 Cervical Effacement Percentage: 30 station: -3 Uterine Contraction Pattern: Absent Deep Tendon Reflex Grade: Normal +2 - Labs Labs: Abnormal Labs 12/03/17 18:55 Creatinine 0.6 L Laboratory Results - last 24 hr 12/03/17 12/03/17 12/03/17 18:55 18:55 18:55 WBC 7.1 RBC 4.17 Hgb 12.5 Hct 37.6 MCV 90 MCH 30 MCHC 33 RDW 13.7 Plt Count 287 Creatinine 0.6 L Estimated GFR > 60 Uric Acid 6.7 AST 18 ALT 9 Lactate Dehydrogenase 178 Urine Color Urine Turbidity Urine pH Ur Specific [place] Urine Protein Urine Glucose (UA) Urine Ketones Urine Blood Urine Nitrite Urine Bilirubin Urine Urobilinogen Ur Leukocyte Esterase Urine WBC (Auto) Urine RBC (Auto) U Epithel Cells (Auto) RPR Blood Type A POSITIVE Antibody Screen Negative 12/03/17 12/03/17 19:00 Unknown WBC RBC Hgb Hct MCV MCH MCHC RDW Plt Count Creatinine Estimated GFR Uric Acid AST ALT Lactate Dehydrogenase Urine Color Yellow Urine Turbidity Clear Urine pH 6.0 Ur Specific [place] 1.017 Urine Protein 30 mg/dl Urine Glucose (UA) Neg Urine Ketones Neg Urine Blood Neg Urine Nitrite Neg Urine Bilirubin Neg Urine Urobilinogen 2.0 Ur Leukocyte Esterase Sm Urine WBC (Auto) 5.0 Urine RBC (Auto) 2.0 U Epithel Cells (Auto) < 1.0 RPR Nonreactive Blood Type Antibody Screen
== END 2017-12-04 16:05 | disposition home or self-care (01) | DRG 781 ==
LOC: LD 16:48
PROVIDERS: ADMIT Obstetrics & Gynecology; ATTEND Obstetrics & Gynecology
DX: O13.3 Gestational [pregnancy-induced] hypertension without significant proteinuria, third trimester (principal); O99.343 Other mental disorders complicating pregnancy, third trimester; N28.9 Disorder of kidney and ureter, unspecified; F32.9 Major depressive disorder, single episode, unspecified; Z3A.38 38 weeks gestation of pregnancy; O09.523 Supervision of elderly multigravida, third trimester; Z87.442 Personal history of urinary calculi; Z88.5 Allergy status to narcotic agent; Z79.899 Other long term (current) drug therapy; O26.833 Pregnancy related renal disease, third trimester
CPT/HCPCS: 36415; 81001; 82565; 83615; 84450; 84460; 84550; 85027; 86592; 86850; 86900; 86901; J2590; J7120

== ENCOUNTER 2017-12-06 10:27 | Outpatient (CLI) | payer MEDICAID ==
--- NOTE | 2017-12-06 16:49 | Ultrasound Report ---
FINAL REPORT EXAM: US OB BPP WO NON-STRESS HISTORY: WELL BEING TECHNIQUE: Ultrasound examination of the gravid uterus for biophysical profile evaluation of the fetus PRIORS: Ob ultrasound 11/29/2017 FINDINGS: There is a single viable intrauterine with documented cardiac activity. The amniotic fluid volume is normal. heart rate: 152 bpm Amniotic fluid maximum vertical pocket 4.9 cm Evaluation for biophysical profile yields the following score as reported by technologist from real-time exam: respiratory motion (minimum one episode): 2 Gross body movement (minimum 3 movements): 2 tone (minimum one flexion and extension): 2 Amniotic fluid volume (at least 2 cm pocket in vertical diameter): 2 IMPRESSION: Single viable intrauterine with 8/8 biophysical profile score during the sonographic evaluation
--- NOTE | 2017-12-06 17:29 | Ultrasound Report ---
FINAL REPORT EXAM: US OB LIMITED HISTORY: WELL BEING; KRISHAN TECHNIQUE: Ultrasound evaluation of the gravid uterus PRIORS: 11/29/2017 FINDINGS: There is a single viable intrauterine with documented cardiac activity. The maternal cervix is obscured by head. The quantity of visualized amniotic fluid appears grossly normal. anatomy not assessed.. Heart rate: 165 beats per minute position: Cephalic Amniotic fluid index: 12.1cm IMPRESSION: Single viable intrauterine with the above parameters
[2017-12-06 19:16] VITALS: BP 125/83
== END 2017-12-06 12:57 | disposition home or self-care (01) ==
LOC: TRG 10:27
PROVIDERS: ATTEND Obstetrics & Gynecology
DX: O47.1 False labor at or after 37 completed weeks of gestation (principal); Z3A.38 38 weeks gestation of pregnancy
CPT/HCPCS: 59025; 76815; 76819

== ENCOUNTER 2017-12-09 20:01 | Inpatient (IN) | payer MEDICAID ==
[2017-12-09] MEDS ORDERED: CERVIDIL VG ONE (22:59)
[2017-12-09] MEDS ORDERED: PITOCin/NS 20 UNIT/1000ML DRIP 20 UNITS/1,000 ML BAG IV SCH (23:00)
[2017-12-09] MEDS ORDERED: LACTATED RINGERS 1,000 ML IV SCH (23:00)
[2017-12-09] MEDS ORDERED: SUBLIMAZE IV PRN (23:00)
[2017-12-09] MEDS: AMBIEN PO PRN ×2 (23:53→23:57)
[2017-12-10 00:24] LABS: Hematocrit 30.6 % (30.3-42.9); Hemoglobin 10.1 gm/dl (10.1-14.3); Mean Corpuscular HGB Conc 33 % (30-34); Mean Corpuscular Hemoglobin 30 pg (28-32); Mean Corpuscular Volume 90 fl (79-97); Platelet Count 269 K/mm3 (140-440)
[2017-12-10 00:34] LABS: Bacteria,Urine 2+ /HPF (Negative); Bilirubin,Urine NEG (Negative); Blood,Urine SM (Negative); Color,Urine Yellow (Yellow); Hyaline Casts,Urine 3 /LPF; Protein,Urine <15 mg/dL mg/dL (Negative); Urobilinogen,Urine < 2.0 mg/dL (<2.0)
[2017-12-10 00:42] LABS: Alanine Aminotransferase 10 units/L (7-56)
[2017-12-10] MEDS ORDERED: XYLOCAINE 2% INFILTRATI ONE ×2 (02:25→18:42)
[2017-12-10] MEDS ORDERED: MINERAL OIL PO PRN (02:25)
[2017-12-10] MEDS ORDERED: ePHEDrine SULFATE IV PRN ×2 (02:25→17:21)
[2017-12-10] MEDS ORDERED: BRETHINE SUB-Q PRN (02:25)
[2017-12-10] MEDS ORDERED: BRETHINE IVP PRN (02:25)
--- NOTE | 2017-12-10 02:42 | History and Physical Report ---
History of Present Illness Date of examination: 12/10/17 Date of admission: 12/09/17 20:33 Chief complaint: Induction of Labor History of present illness: 37yo G 5 P 4 0 0 4 at 39 weeks 0 day here for induction of labor. She is a [employer] patient who was sent from the clinic for IOL due to symptomatic elevated BPs. She has a h/o chronic hypertension and was not on medication. Her care was co-managed with [facility] [place]. IOL was attempted 1 week ago but unsuccessful. Her course was complicated by late entry to care, AMA, UTI, vitamin D deficiency, and anemia. Her GBS was negative. Past History Past Medical History: hypertension (chronic), lung disease (sarcoidosis), thyroid disease, kidney stones, other (rheumatoid arthritis, bipolar disorder, panic disorder) Past Surgical History: other (lithotripsy) [employer] History: abnormal PAP smear (ASC-H) Family/Genetic History: heart disease, hypertension, congenital heart defect ( daughter with murmur repaired at age 1), other (schizophrenia) Social history: single, lives with family, full code. denies: smoking (former smoker) - Obstetrical History Expected Date of Delivery: 12/17/17 Actual Gestation: 39 Week(s) 0 Day(s) : 5 Para: 4 Hx # Term Pregnancies: 4 Number of Pregnancies: 0 Spontaneous Abortions: 0 Induced : 0 Number of Living Children: 4 #1 Infant Gender: Male year: 1,997 (11/19/1997) Birthweight: 2.722 kg (6 lbs) Method of Delivery: Vaginal Gestational age at delivery: 40 #2 Gender: Female year: 2,[birth year] (04/06/2006) Birthweight: 2.495 kg (5lbs 8oz) Method of Delivery: Vaginal Gestational age at delivery: 40 #3 Gender: Male year: 2,007 (06/20/2008) Birthweight: 2.722 kg (6 lbs) Method of Delivery: Vaginal Gestational age at delivery: 40 #4 Gender: Male year: 2,008 (06/07/2009) Birthweight: 2.722 kg (6 lbs) Method of Delivery: Vaginal Gestational age at delivery: 40 Medications and Allergies Allergies Allergy/AdvReac Type Severity Reaction Status Date / Time codeine AdvReac Hives Verified 04/15/17 10:33 Home Medications Medication Instructions Recorded Confirmed Last Taken Type Vit-Fe Fumar-FA [ 1 tab PO QDAY #90 tablet 04/15/17 12/09/17 2 Days Ago Rx Vitamin] ~12/07/17 Active Meds: Active Medications Fentanyl (Sublimaze) 100 mcg IV Q2H PRN PRN Reason: Labor Pain Lactated Ringer's (Lactated Ringers) 1,000 mls @ 125 mls/hr IV DIRECT ALLEN Oxytocin/Sodium Chloride (Pitocin/Ns 20 Unit/1000ml Drip) 20 units in 1,000 mls @ 125 mls/hr IV DIRECT ALLEN Zolpidem Tartrate (Ambien) 5 mg PO QHS PRN PRN Reason: Sleep Last Admin: 12/09/17 23:57 Dose: 5 mg Review of Systems All systems: negative - Vital Signs Vital signs: Vital Signs Temp Pulse Resp BP Pulse Ox 97.8 F 93 H 18 132/90 97 12/09/17 21:16 12/09/17 21:16 12/09/17 21:16 12/09/17 21:16 12/09/17 21:16 Temp Pulse Resp BP Pulse Ox 97.3 F L 83 18 132/93 99 12/09/17 23:58 12/09/17 23:58 12/09/17 23:58 12/09/17 23:58 12/09/17 23:58 - Physical Exam Cardiovascular: Regular rate, Normal S1, Normal S2, No murmurs Lungs: Positive: Clear to auscultation, Normal air movement Abdomen: Positive: normal appearance, soft Genitourinary (Female): Positive: normal external genitalia, normal perenium Vulva: both: normal Vagina: Positive: normal moisture Uterus: Positive: normal size, normal contour Anus/Rectum: Positive: normal perianal skin Extremities: Positive: normal Deep Tendon Reflex Grade: Normal +2 - Obstetrical FHR: auscultation normal, category 1 FHR comments: baseline 140, moderate variability, 15x15 accels, no decels Uterine Contraction Monitor Mode: External Cervical Dilatation: 3 Cervical Effacement Percentage: 50 station: -3 Uterine Contraction Pattern: Irregular Results Result Diagrams: 12/09/17 23:10 12/09/17 23:10 Abnormal lab results 12/09/17 12/09/17 12/09/17 Range/Units 23:10 23:10 23:10 RBC 3.40 L (3.65-5.03) M/mm3 Creatinine 0.5 L (0.7-1.2) mg/dL Urine WBC (Auto) 25.0 H (0.0-6.0) /HPF All other labs normal. Assessment and Plan - Patient Problems (1) 39 weeks gestation of Current Visit: Yes Status: Acute (2) Encounter for induction of labor Current Visit: Yes Status: Acute Plan to address problem: Admit to L&D with routine labor orders Start cervidil for cervical ripening Oxytocin for augmentation, if indicated Anticipate vaginal delivery (3) Chronic hypertension affecting Current Visit: Yes Status: Acute Plan to address problem: STAT PIH labs Antihypertensive therapy, if indicated (4) AMA (advanced maternal age) multigravida 35+ Current Visit: Yes Status: Acute
[2017-12-10] MEDS ORDERED: PITOCin/NS 20 UNIT/1000ML DRIP 20 UNITS/1,000 ML BAG IV SCH (03:00)
--- NOTE | 2017-12-10 06:15 | Progress Note ---
Assessment and Plan - Patient Problems (1) 39 weeks gestation of Current Visit: Yes Status: Acute (2) Chronic hypertension affecting Current Visit: Yes Status: Acute Plan to address problem: Labs were normal. Will continue BP, DTRs, and toco monitoring. Cervidil to be removed at 9 am. (3) AMA (advanced maternal age) multigravida 35+ Current Visit: Yes Status: Acute (4) Encounter for induction of labor Current Visit: Yes Status: Acute (5) Sarcoidosis of lung Current Visit: Yes Status: Acute Subjective - Subjective Date of service: 12/10/17 Principal diagnosis: SIUP at 39 weeks with chronic HtN and elevated BP Interval history: Patient was admitted last evening for labor induction due to a history of chronic HTN and chronic lung disease (sarcoidosis). Cervidil #1 was placed at 9 pm. She denies any headache, visual changes or RUP pain. Toxemia labs were normal last night. BP has been stable in the 120-130's/70-80's. She complains of crampy pain but denies any fluid leakage or bleeding. tracing CAT 1. Objective - Vital Signs Vital Signs: Vital Signs - 12hr 12/09/17 12/09/17 12/09/17 21:16 23:35 23:58 Temperature 97.8 F 97.3 F L Pulse Rate 93 H 80 83 Respiratory 18 18 Rate Blood Pressure 132/90 128/84 132/93 [Left] O2 Sat by Pulse 97 99 Oximetry 12/10/17 12/10/17 02:42 05:30 Temperature 97.6 F Pulse Rate 82 92 H Respiratory 18 18 Rate Blood Pressure 132/79 129/91 [Left] O2 Sat by Pulse 100 Oximetry - Exam Cardiovascular: Normal S1, Normal S2 Lungs: Clear to auscultation Vulva: both: normal FHR: category 1 Uterine Contraction Monitor Mode: External Cervical Dilatation: 3 Uterine Contraction Pattern: Irregular Uterine Contraction Intensity: Mild Deep Tendon Reflex Grade: Normal +2 - Labs Labs: Abnormal Labs 12/09/17 12/09/17 12/09/17 23:10 23:10 23:10 RBC 3.40 L Creatinine 0.5 L Urine WBC (Auto) 25.0 H Laboratory Results - last 24 hr 12/09/17 12/09/17 12/09/17 23:10 23:10 23:10 WBC 6.3 RBC 3.40 L Hgb 10.1 Hct 30.6 MCV 90 MCH 30 MCHC 33 RDW 14.0 Plt Count 269 Creatinine Estimated GFR Uric Acid 6.0 AST ALT Lactate Dehydrogenase Urine Color Yellow Urine Turbidity Hazy Urine pH 7.0 Ur Specific [place] 1.008 Urine Protein <15 mg/dl Urine Glucose (UA) Neg Urine Ketones Neg Urine Blood Sm Urine Nitrite Neg Urine Bilirubin Neg Urine Urobilinogen < 2.0 Ur Leukocyte Esterase Lg Urine WBC (Auto) 25.0 H Urine RBC (Auto) 4.0 U Epithel Cells (Auto) 4.0 Urine Bacteria (Auto) 2+ Hyaline Casts 3 Blood Type Antibody Screen 12/09/17 12/09/17 23:10 23:10 WBC RBC Hgb Hct MCV MCH MCHC RDW Plt Count Creatinine 0.5 L Estimated GFR > 60 Uric Acid AST 16 ALT 10 Lactate Dehydrogenase 177 Urine Color Urine Turbidity Urine pH Ur Specific [place] Urine Protein Urine Glucose (UA) Urine Ketones Urine Blood Urine Nitrite Urine Bilirubin Urine Urobilinogen Ur Leukocyte Esterase Urine WBC (Auto) Urine RBC (Auto) U Epithel Cells (Auto) Urine Bacteria (Auto) Hyaline Casts Blood Type A POSITIVE Antibody Screen Negative
[2017-12-10] MEDS ORDERED: TYLENOL PO PRN (08:55)
[2017-12-10] MEDS: ZOFRAN IV PRN ×2 (10:28→21:58)
[2017-12-10] MEDS: LACTATED RINGERS 1,000 ML IV SCH ×3 (11:38→15:53)
[2017-12-10] MEDS: PITOCin/NS 30 UNIT/500ML 30 UNITS/500 ML BAG IV SCH ×5 (11:51→17:25)
[2017-12-10] MEDS ORDERED: NARCAN 2 MG/2 ML IV PRN (17:21)
--- NOTE | 2017-12-10 17:21 | Anesthesia Consultation ---
Anesthesia Consult and Med Hx Date of service: 12/10/17 - Airway Anesthetic Teeth Evaluation: Good ROM Head & Neck: Adequate Mental/Hyoid Distance: Adequate Mallampati Class: Class II Intubation Access Assessment: Good - Pulmonary Exam CTA: Yes - Cardiac Exam Cardiac Exam: No Murmur - Pre-Operative Health Status ASA Pre-Surgery Classification: ASA2 Proposed Anesthetic Plan: Epidural - Pulmonary Hx Asthma: No COPD: No Hx Pneumonia: No - Cardiovascular System Hx Hypertension: Yes (2013) - Central Nervous System Hx Seizures: No Hx Psychiatric Problems: Yes (depression;BIPOLAR, HX OF SUICIDE ATTEMPT) - Endocrine Hx Renal Disease: Yes (kidney stones) Hx End Stage Renal Disease: No Hx Hypothyroidism: No Hx Hyperthyroidism: No - Hematic Hx Anemia: No Hx Sickle Cell Disease: No - Other Systems Hx Alcohol Use: No
[2017-12-10] MEDS ORDERED: fentaNYL-BUPIV 2 MCG/ML-0.125% 200 MCG/100 ML BAG EPIDURAL SCH (18:00)
[2017-12-10] MEDS ORDERED: LANSINOH TP PRN (20:25)
[2017-12-10] MEDS ORDERED: DULCOLAX PR PRN (20:25)
[2017-12-10] MEDS ORDERED: MILK OF MAGNESIA PO PRN (20:25)
[2017-12-10] MEDS ORDERED: TUCKS PAD TP PRN (20:25)
[2017-12-10] MEDS ORDERED: ZOFRAN IV PRN (20:25)
[2017-12-10] MEDS ORDERED: PHENERGAN PO PRN (20:25)
--- NOTE | 2017-12-10 20:25 | Procedure Note ---
OB Delivery Note - Delivery Date of Delivery: 12/10/17 (20:10) Surgeon: SHAMIR FOY (WINSOME) Estimated blood loss: 100cc - Vaginal Delivery presentation: vertex Delivery position: OA Intrapartum events: none Delivery induction: oxytocin Delivery augmentation: rupture of membranes, pitocin Delivery monitor: external FHT, external uterine Route of delivery: (20:10) Delivery placenta: spontaneous (20:13) Delivery cord: 3 umbilical vessels Episiotomy: none Delivery laceration: none Anesthesia: epidural Delivery comments: viable female MOHINDER position over intact perineum under [id number] anesthesia at 20:10. Infant to mothers abdomen for [id number]. Delayed cord clamping. Cord cut by FOB. Spontaneous diallo delivery of intact placenta at 20:13. 3VC. FF@U-3. Good hemostasis. No tears or lacerations. and mother left in stable condition in L&D. EBL 100CC - A at 1 minute: 8 at 5 minutes: 9 Gender: Female (6lbs 11oz, 3043 grams, 19")
[2017-12-10] MEDS ORDERED: SODIUM CHLORIDE FLUSH SYRINGE 10 ML IV SCH (21:00)
[2017-12-10] MEDS: MOTRIN PO SCH (21:24)
[2017-12-11] MEDS: MOTRIN PO SCH ×5 (00:10→23:40)
[2017-12-11] MEDS: TYLENOL PO PRN ×2 (00:28→14:40)
[2017-12-11 08:23] LABS: Hematocrit 26.9 % (30.3-42.9); Hemoglobin 9.3 gm/dl (10.1-14.3)
[2017-12-11] MEDS: NORCO 5/325 PO PRN ×2 (08:49→20:12)
--- NOTE | 2017-12-11 08:51 | Progress Note ---
Assessment and Plan - Patient Problems (1) 39 weeks gestation of Current Visit: Yes Status: Acute (2) Chronic hypertension affecting Current Visit: Yes Status: Acute Plan to address problem: Will continue BP, DTRs. Toxemia labs this am. Start labetolol BID. (3) AMA (advanced maternal age) multigravida 35+ Current Visit: Yes Status: Acute (4) Sarcoidosis of lung Current Visit: Yes Status: Acute (5) (normal spontaneous vaginal delivery) Current Visit: Yes Status: Acute Plan to address problem: Continue routine care. (6) Anemia Current Visit: Yes Status: Acute Qualifiers: Anemia type: iron deficiency Subjective - Subjective Date of service: 12/11/17 Principal diagnosis: S/P , elevated BP Interval history: Patient was induced and delivered via last night at 8 PM. She had a h/o chronic HTN and toxemia labs were normal on admission. Since her delivery, her BP has been elevated to the 140-150's/80-90's. She denies any headache or visual disturbances. Bleeding is mild. Objective - Vital Signs Latest vital signs: Vital Signs Temp Pulse Resp BP BP Pulse Ox 12/11/17 04:30 98.6 F 72 18 133/82 97 12/10/17 22:46 97.8 F 78 18 147/93 99 12/10/17 21:51 80 149/87 12/10/17 21:50 77 165/86 12/10/17 21:35 76 151/85 12/10/17 21:24 18 12/10/17 21:20 86 143/87 12/10/17 21:05 76 153/82 12/10/17 20:50 77 141/78 12/10/17 20:38 82 132/70 12/10/17 20:20 96.7 F L 90 18 138/79 12/10/17 19:58 130/66 12/10/17 19:50 97.8 F 82 16 128/82 100 12/10/17 16:58 93 H 157/83 12/10/17 16:55 96.7 F L 93 H 18 157/83 100 12/10/17 15:12 70 108/59 12/10/17 14:24 18 12/10/17 14:18 83 141/94 12/10/17 11:53 98.1 F 103 H 18 139/88 Intake and Output 12/10/17 12/11/17 12/11/17 23:59 07:59 15:59 Intake Total 467.6 Output Total 1200 900 Balance -732.4 -900 Intake: IV 27.6 PITOCin/NS 30 UNIT/500ML 27.6 30 units In 500 ml @ 2 mls/hr IV TITR ALLEN Rx#: [id number] Oral 440 Output: Urine 1200 900 Indwelling Catheter 800 Void 400 900 Other: Total, Intake Amount 240 Total, Output Amount 400 200 Estimated Blood Loss 100 - Exam Narrative Exam: Abd: soft, NT, fundus firm. DTRs wnl. Ext: no edema, no calf TN or Ezequiel's sign. Cardiovascular: Present: Normal S1, Normal S2 Lungs: Present: Clear to auscultation Vulva: both: normal Deep Tendon Reflex Grade: Normal +2 - Labs Labs: Abnormal lab results 12/11/17 Range/Units 08:00 Hgb 9.3 L (10.1-14.3) gm/dl Hct 26.9 L (30.3-42.9) %
--- NOTE | 2017-12-11 10:16 | Progress Note ---
Assessment and Plan A: PP Day #1 CHTN Back Pain secondary to epidural P: Follow routine orders Continue Labetolol 200mg PO BID Anesthesia Consult Subjective - Subjective Date of service: 12/11/17 Principal diagnosis: S/P , elevated BP Patient reports: appetite normal, voiding normally, flatus, pain poorly controlled (back pain), other (Complains of severe back pain due to epidural affecting ambulation) [place]: doing well, bottle feeding Objective - Vital Signs Latest vital signs: Vital Signs Temp Pulse Resp BP BP Pulse Ox 12/11/17 08:26 97.7 F 82 18 142/75 12/11/17 04:30 98.6 F 72 18 133/82 97 12/10/17 22:46 97.8 F 78 18 147/93 99 12/10/17 21:51 80 149/87 12/10/17 21:50 77 165/86 12/10/17 21:35 76 151/85 12/10/17 21:24 18 12/10/17 21:20 86 143/87 12/10/17 21:05 76 153/82 12/10/17 20:50 77 141/78 12/10/17 20:38 82 132/70 12/10/17 20:20 96.7 F L 90 18 138/79 12/10/17 19:58 130/66 12/10/17 19:50 97.8 F 82 16 128/82 100 12/10/17 16:58 93 H 157/83 12/10/17 16:55 96.7 F L 93 H 18 157/83 100 12/10/17 15:12 70 108/59 12/10/17 14:24 18 12/10/17 14:18 83 141/94 12/10/17 11:53 98.1 F 103 H 18 139/88 Intake and Output 12/10/17 12/11/17 12/11/17 22:59 06:59 14:59 Intake Total 1006.183 360 Output Total 1600 900 Balance -593.817 -900 360 Intake: IV 566.183 Lactated Ringers 1,000 ml 531.250 @ 125 mls/hr IV DIRECT ALLEN Rx#:[id number] PITOCin/NS 30 UNIT/500ML 34.933 30 units In 500 ml @ 2 mls/hr IV TITR ALLEN Rx#: [id number] Oral 440 360 Output: Urine 1300 900 Indwelling Catheter 800 Void 500 900 Emesis 300 Other: Total, Intake Amount 240 360 Total, Output Amount 400 200 Estimated Blood Loss 100 - Exam Breasts: Present: normal Cardiovascular: Present: Regular rate Lungs: Present: Clear to auscultation, Normal air movement Abdomen: Present: normal appearance, soft, normal bowel sounds Uterus: Present: normal, firm, fundal height below umbilicus Extremities: Present: normal - Labs Labs: Abnormal lab results 12/11/17 Range/Units 08:00 Hgb 9.3 L (10.1-14.3) gm/dl Hct 26.9 L (30.3-42.9) %
[2017-12-11 10:56] LABS: Hematocrit 31.4 % (30.3-42.9); Hemoglobin 10.7 gm/dl (10.1-14.3); Mean Corpuscular HGB Conc 34 % (30-34); Mean Corpuscular Hemoglobin 30 pg (28-32); Mean Corpuscular Volume 89 fl (79-97); Platelet Count 266 K/mm3 (140-440); Red Blood Count 3.55 M/mm3 (3.65-5.03); Red Cell Distribution Width 14.2 % (13.2-15.2)
[2017-12-11] MEDS: NORMODYNE PO SCH ×2 (11:11→22:39)
[2017-12-11 11:15] LABS: Alanine Aminotransferase 13 units/L (7-56); Uric Acid 5.6 mg/dL (3.5-7.6)
[2017-12-11] MEDS: BENADRYL PO PRN (20:11)
[2017-12-11 20:54] LABS: Bilirubin,Urine NEG (Negative); Blood,Urine LG (Negative); Color,Urine Yellow (Yellow); Mucus,Urine FEW /HPF; Protein,Urine <15 mg/dL mg/dL (Negative)
[2017-12-11 20:55] LABS: RBC,Urine > 182.0 /HPF (0.0-6.0)
[2017-12-12] MEDS: BENADRYL PO PRN (01:57)
[2017-12-12] MEDS: MOTRIN PO SCH (05:41)
--- NOTE | 2017-12-12 10:13 | Progress Note ---
Assessment and Plan A: PPD#2 CHTN Stable Pain well controlled Back pain resolved Requesting discharge home P: Routine PP/PO care Encouraged ambulation Discharge home today Continue Labetalol 200mg PO BID Subjective - Subjective Date of service: 12/12/17 Principal diagnosis: S/P , CHTN Interval history: See H&P and Delivery note Patient reports: appetite normal, voiding normally, pain well controlled, flatus , ambulating normally [place]: doing well, bottle feeding Objective - Vital Signs Latest vital signs: Vital Signs Temp Pulse Resp Resp BP BP 12/12/17 06:41 18 12/12/17 05:41 18 12/12/17 01:52 97.8 F 65 18 111/67 12/12/17 00:40 18 12/11/17 23:40 18 12/11/17 23:30 18 12/11/17 22:39 76 132/84 12/11/17 20:12 20 12/11/17 16:40 97.7 F 70 18 109/62 12/11/17 12:15 97.7 F 78 18 116/71 12/11/17 11:11 78 147/87 Intake and Output 12/11/17 12/12/17 12/12/17 23:59 07:59 15:59 Intake Total 480 600 Balance 480 600 Intake: Oral 240 Intake, Free Water 240 600 Other: Total, Intake Amount 120 # Voids Void 1 1 - Exam Breasts: Present: normal Cardiovascular: Present: Regular rate, Normal S1, Normal S2 Lungs: Present: Clear to auscultation, Normal air movement Abdomen: Present: normal appearance, soft, normal bowel sounds. Absent: distention Vulva: both: normal Uterus: Present: normal, firm, fundal height below umbilicus (-1) Extremities: Present: normal Deep Tendon Reflex Grade: Normal +2 - Labs Labs: Abnormal lab results 12/11/17 12/11/17 12/11/17 Range/Units 10:34 10:34 20:30 RBC 3.55 L (3.65-5.03) M/mm3 Creatinine 0.6 L (0.7-1.2) mg/dL Lactate Dehydrogenase 228 H (91-180) units/L Urine WBC (Auto) 9.0 H (0.0-6.0) /HPF
--- NOTE | 2017-12-12 10:15 | Discharge Summary ---
Providers - Providers Date of Admission: 12/09/17 20:33 Date of discharge: 12/12/17 Attending physician: RASHID HIGUERA MD 12/11/17 10:17 Consult to Anesthesiology [CONS] Urgent Consulting Provider: IGNACIA ANESTHESIA SHANITA NUNEZ Reason For Exam: Severe Back Pain related to Epidural Primary care physician: RASHID HIGUERA MD Hospitalization Reason for admission: induction of labor, IUP at term Delivery: Procedure details: See delivery note Episiotomy: none Laceration: none Other procedures: none complications: none Discharge diagnosis: IUP at term delivered [place] baby: female Condition at discharge: Good Disposition: DC-01 TO HOME OR SELFCARE Plan - Provider Discharge Summary Activity: routine, no sex for 6 weeks, no heavy lifting 4 weeks, no strenuous exercise Diet: routine Instructions: routine Additional instructions: [] Smoking cessation referral if applicable(refer to patient education folder for contact #) [] Refer to [facility]'s [facility] Booklet Call your doctor immediately for: * Fever > 100.5 * Heavy vaginal bleeding ( >1 pad per hour) * Severe persistent headache * Shortness of breath * Reddened, hot, painful area to leg or breast * Drainage or odor from incision. * Keep incision clean and dry at all times and follow doctor's instructions regarding bathing/showering - Follow up plan Follow up: RASHID HIGUERA MD [Primary Care Provider] - 6 Weeks
[2017-12-12] MEDS: NORMODYNE PO SCH (11:00)
[2017-12-12 11:02] VITALS: BP 125/79
== END 2017-12-12 15:30 | disposition home or self-care (01) | DRG 774 ==
LOC: TRG 20:01 → LD 20:33 → OB 12-10 22:00
PROVIDERS: ADMIT Obstetrics & Gynecology; ATTEND Obstetrics & Gynecology
PROC: 10E0XZZ Delivery of Products of Conception, External Approach (ICD-10-PCS; principal; 2017-12-10)
PROC: 3E033VJ Introduction of Other Hormone into Peripheral Vein, Percutaneous Approach (ICD-10-PCS; 2017-12-10)
PROC: 3E0R3BZ Introduction of Anesthetic Agent into Spinal Canal, Percutaneous Approach (ICD-10-PCS; 2017-12-10)
PROC: 00HU33Z Insertion of Infusion Device into Spinal Canal, Percutaneous Approach (ICD-10-PCS; 2017-12-10)
DX: O10.92 Unspecified pre-existing hypertension complicating childbirth (principal); Z3A.39 39 weeks gestation of pregnancy; Z37.0 Single live birth; O99.89 Other specified diseases and conditions complicating pregnancy, childbirth and the puerperium; O99.02 Anemia complicating childbirth; D50.9 Iron deficiency anemia, unspecified; O75.89 Other specified complications of labor and delivery; D86.0 Sarcoidosis of lung; M06.9 Rheumatoid arthritis, unspecified; F31.9 Bipolar disorder, unspecified
CPT/HCPCS: 36415; 81001; 82565; 83615; 84450; 84460; 84550; 85014; 85018; 85027; 86592; 86850; 86900; 86901; J2405; J2590; J3010; J7120

== ENCOUNTER 2018-05-06 08:50 | Emergency (ER) | payer MEDICAID ==
[2018-05-06 10:25] VITALS: BP 165/93
[2018-05-06] MEDS ORDERED: NACL 0.9% 1000 ML 1,000 ML IV ONE (10:27)
[2018-05-06 10:54] LABS: Basophils % (Auto) 0.8 % (0.0-1.8); Eosinophils # (Auto) 0.1 K/mm3 (0.0-0.4); Eosinophils % (Auto) 3.7 % (0.0-4.3); Hemoglobin 13.4 gm/dl (10.1-14.3); Lymphocytes # (Auto) 0.9 K/mm3 (1.2-5.4); Lymphocytes % (Auto) 29.7 % (13.4-35.0); Mean Corpuscular HGB Conc 33 % (30-34); Mean Corpuscular Hemoglobin 28 pg (28-32); Mean Corpuscular Volume 84 fl (79-97); Monocytes # (Auto) 0.3 K/mm3 (0.0-0.8); Monocytes % (Auto) 10.7 % (0.0-7.3); Platelet Count 273 K/mm3 (140-440); Red Blood Count 4.74 M/mm3 (3.65-5.03); Red Cell Distribution Width 14.2 % (13.2-15.2)
[2018-05-06 11:19] LABS: Alanine Aminotransferase 17 units/L (7-56); Albumin 4.7 g/dL (3.9-5); BUN/Creatinine Ratio 11; Blood Urea Nitrogen 8 mg/dL (7-17); Calcium 9.7 mg/dL (8.4-10.2); Hemolysis Index 0
--- NOTE | 2018-05-06 11:33 | Emergency Department Report ---
ED Abdominal Pain HPI - General Chief Complaint: Abdominal Pain Stated Complaint: STOAMCH PAIN/NAUSEA Time Seen by Provider: 05/06/18 11:22 Source: patient Mode of arrival: Ambulatory Limitations: No Limitations - History of Present Illness Complaint: abdominal pain -: Gradual, week(s) (1) Location: diffuse Radiation: none Severity: mild Quality: cramping Consistency: intermittent Context: possible food poisoning (felt like she ate some bad meat at home, daughter with similar symptoms) Associated Symptoms: nausea, vomiting, diarrhea, other (muscle spasms) - Related Data Previous Rx's Medication Instructions Recorded Last Taken Type Vit-Fe Fumar-FA [ 1 tab PO QDAY #90 tablet 04/15/17 2 Days Ago Rx Vitamin] ~12/07/17 Ciprofloxacin HCl [Cipro] 500 mg PO BID 3 Days #6 tablet 05/06/18 Unknown Rx Allergies Allergy/AdvReac Type Severity Reaction Status Date / Time codeine Allergy Hives Verified 12/10/17 20:32 ED Review of Systems ROS: Stated complaint: STOAMCH PAIN/NAUSEA Other details as noted in HPI ED Past Medical Hx - Past Medical History Hx Hypertension: Yes (2013) Hx Congestive Heart Failure: No Hx Diabetes: No Hx Deep Vein Thrombosis: No Hx Renal Disease: Yes (kidney stones) Hx Sickle Cell Disease: No Hx Seizures: No Hx Asthma: No Hx COPD: No Hx HIV: No Additional medical history: Sarcoidosis - Surgical History Additional Surgical History: lithotripsy 2014 - Social History Smoking Status: Never Smoker Substance Use Type: None - Medications Home Medications: Home Medications Medication Instructions Recorded Confirmed Last Taken Type Vit-Fe Fumar-FA [ 1 tab PO QDAY #90 tablet 04/15/17 12/09/17 2 Days Ago Rx Vitamin] ~12/07/17 Ciprofloxacin HCl [Cipro] 500 mg PO BID 3 Days #6 tablet 05/06/18 Unknown Rx ED Physical Exam - General Limitations: No Limitations General appearance: alert, in no apparent distress - Head Head exam: Present: atraumatic, normocephalic - Eye Eye exam: Present: normal appearance - ENT ENT exam: Present: mucous membranes moist - Neck Neck exam: Present: normal inspection. Absent: tenderness, meningismus - Respiratory Respiratory exam: Present: normal lung sounds bilaterally. Absent: respiratory distress, wheezes, rales, rhonchi - Cardiovascular Cardiovascular Exam: Present: regular rate, normal rhythm, normal heart sounds. Absent: systolic murmur, diastolic murmur, rubs, gallop - GI/Abdominal GI/Abdominal exam: Present: soft, normal bowel sounds. Absent: distended, tenderness, guarding, rebound - Extremities Exam Extremities exam: Present: normal inspection - Back Exam Back exam: Present: normal inspection - Neurological Exam Neurological exam: Present: alert, oriented X3 - Psychiatric Psychiatric exam: Present: normal affect, normal mood - Skin Skin exam: Present: warm, dry, intact, normal color. Absent: rash ED Course Vital Signs 05/06/18 10:22 Temperature 98.1 F Pulse Rate 79 Respiratory 16 Rate Blood Pressure 165/93 O2 Sat by Pulse 98 Oximetry ED Medical Decision Making - Lab Data Result diagrams: 05/06/18 10:37 05/06/18 10:37 - Medical Decision Making Ms. C[place]ton presents with n/v/d and abd pain. Mild Leukopenia on CBC, normal differential. Normal electrolytes. No tenderness on exam to indicate peritonitis or acute intra-abdominal process. rx: ciprofloxacin Critical care attestation.: If time is entered above; I have spent that time in minutes in the direct care of this critically ill patient, excluding procedure time. ED Disposition Clinical Impression: Food poisoning Disposition: DC-01 TO HOME OR SELFCARE Is pt being admited?: No Does the pt Need Aspirin: No Condition: Stable Instructions: Food Poisoning (ED) Prescriptions: Ciprofloxacin HCl [Cipro] 500 mg PO BID 3 Days #6 tablet Referrals: PRIMARY CARE, [Primary Care Provider] - 3-5 Days Time of Disposition: 11:32
[2018-05-06 11:46] LABS: Bilirubin,Urine NEG (Negative); Blood,Urine NEG (Negative); Calcium Oxalate Crystals,Urine 2+; Color,Urine Amber (Yellow); Mucus,Urine 3+ /HPF
== END 2018-05-06 12:02 | disposition home or self-care (01) ==
LOC: ED 08:50
DX: T62.94XA Toxic effect of unspecified noxious substance eaten as food, undetermined, initial encounter (principal); I10 Essential (primary) hypertension; Z88.5 Allergy status to narcotic agent; Y92.89 Other specified places as the place of occurrence of the external cause
CPT/HCPCS: 36415; 80053; 81001; 84703; 85025; 99283

== ENCOUNTER 2018-09-08 08:37 | Emergency (ER) | payer MEDICAID ==
[2018-09-08 09:21] LABS: Bilirubin,Urine NEG (Negative); Blood,Urine SM (Negative); Color,Urine Yellow (Yellow); Mucus,Urine FEW /HPF; Protein,Urine <15 mg/dL mg/dL (Negative)
[2018-09-08 09:29] LABS: HCG Qualitative,Urine Negative (Negative)
[2018-09-08] MEDS ORDERED: NACL 0.9% 1000 ML 1,000 ML IV ONE (09:56)
[2018-09-08] MEDS ORDERED: ZOFRAN IV ONE (09:56)
[2018-09-08 10:08] LABS: Basophils % (Auto) 1.1 % (0.0-1.8); Eosinophils # (Auto) 0.1 K/mm3 (0.0-0.4); Eosinophils % (Auto) 3.4 % (0.0-4.3); Hematocrit 35.7 % (30.3-42.9); Hemoglobin 11.7 gm/dl (10.1-14.3); Lymphocytes % (Auto) 26.7 % (13.4-35.0); Mean Corpuscular HGB Conc 33 % (30-34); Mean Corpuscular Volume 92 fl (79-97); Monocytes # (Auto) 0.4 K/mm3 (0.0-0.8); Monocytes % (Auto) 11.7 % (0.0-7.3); Platelet Count 259 K/mm3 (140-440); Red Blood Count 3.88 M/mm3 (3.65-5.03)
[2018-09-08 10:24] LABS: Alanine Aminotransferase 14 units/L (7-56); BUN/Creatinine Ratio 8; Blood Urea Nitrogen 5 mg/dL (7-17); Calcium 8.6 mg/dL (8.4-10.2); Hemolysis Index 7
--- NOTE | 2018-09-08 10:27 | Cat Scan Report ---
CT HEAD WITHOUT CONTRAST INDICATION: Headache. COMPARISON: None similar. FINDINGS: Noncontrast head CT demonstrates normal, symmetric ventricles and sulci without acute or recent infarct, hemorrhage, mass effect or midline shift. No abnormal extra-axial fluid collections. Posterior fossa structures and basilar cisterns within normal limits. Symmetric eye globes. Left sphenoid sinus 0.7 cm mucosal thickening or retention cyst noted posteriorly. Clear remainder imaged paranasal sinuses and mastoid air cells. Intact calvarium. Normal overlying scalp soft tissues. Few missing teeth suspected. CONCLUSION: No acute intracranial CT abnormality with left sphenoid sinus disease noted, as described. Please correlate. Thank you for the opportunity to participate in this patient's care.
--- NOTE | 2018-09-08 10:30 | Emergency Department Report ---
HPI - General Chief Complaint: Abdominal Pain Time Seen by Provider: 09/08/18 09:24 - HPI HPI: 38-year-old female presents to the emergency department with complaint of a one-week history of right sided abdominal and flank pain that she says is a burning sensation. Over the past few days it has been associated with some nausea and vomiting. She denies any vaginal bleeding, vaginal discharge, dysuria, fever. Patient also complains of a frontal headache over the past 24 hours. No vision change, slurred speech, or any neurological deficits. She does have a history of migraine headaches and says that this feels consistent with that. Patient has a past medical history of kidney stones, hypertension, sarcoidosis. No recent travel or sick contacts at home. Her primary care physician is Dr. Anil Peñaloza. She does not have a urologist. ED Past Medical Hx - Past Medical History Previous Medical History?: Yes Hx Hypertension: Yes (2013) Hx Congestive Heart Failure: No Hx Diabetes: No Hx Deep Vein Thrombosis: No Hx Renal Disease: Yes (kidney stones) Hx Sickle Cell Disease: No Hx Seizures: No Hx Kidney Stones: Yes Hx Asthma: No Hx COPD: No Hx HIV: No Additional medical history: Sarcoidosis - Surgical History Past Surgical History?: Yes Additional Surgical History: lithotripsy 2014 - Social History Smoking Status: Never Smoker Substance Use Type: None - Medications Home Medications: Home Medications Medication Instructions Recorded Confirmed Last Taken Type Vit-Fe Fumar-FA [ 1 tab PO QDAY #90 tablet 04/15/17 12/09/17 2 Days Ago Rx Vitamin] ~12/07/17 Ondansetron [Zofran Odt] 4 mg PO Q8H PRN #9 tab.rapdis 05/06/18 Unknown Rx RX: Ciprofloxacin HCl [Cipro] 500 mg PO BID 3 Days #6 tablet 05/06/18 Unknown Rx RX: Ibuprofen 600 mg PO Q8H PRN #20 tablet 06/20/18 Unknown Rx Ketorolac [Toradol] 10 mg PO Q6H PRN #12 tablet 07/02/18 Unknown Rx Sulfamethoxazole/Trimethoprim 1 each PO BID #14 tablet 07/02/18 Unknown Rx [Bactrim DS TAB] Ondansetron [Zofran Odt] 4 mg PO Q8HR PRN #12 tab.rapdis 01/28/19 Unknown Rx ED Review of Systems ROS: Stated complaint: ABD PAIN/NAUSEA/HEADACHE Other details as noted in HPI Comment: All other systems reviewed and negative Constitutional: denies: chills, fever Eyes: denies: eye pain, vision change ENT: denies: ear pain, throat pain Respiratory: denies: cough, shortness of breath Cardiovascular: denies: chest pain, palpitations Gastrointestinal: abdominal pain, nausea, vomiting Genitourinary: denies: dysuria, discharge Musculoskeletal: denies: back pain, arthralgia Skin: denies: rash, lesions Neurological: headache. denies: weakness, numbness Physical Exam - Physical Exam Vital Signs: Vital Signs 09/08/18 09/08/18 09/08/18 08:44 09:20 09:45 Temperature 98.2 F Pulse Rate 73 79 Respiratory 16 16 16 Rate Blood Pressure 132/85 Blood Pressure 135/85 [Left] O2 Sat by Pulse 100 100 100 Oximetry Physical Exam: GENERAL: The patient is well-developed well-nourished. HEENT: Normocephalic. Atraumatic. Patient has moist mucous membranes. EYES: Extraocular motions are intact. Pupils are equal and reactive to light bilaterally. No nystagmus. NECK: Supple. Trachea is midline. CHEST/LUNGS: Clear to auscultation. There is no respiratory distress noted. HEART/CARDIOVASCULAR: Regular. There is no tachycardia. There is no obvious murmur. ABDOMEN: Abdomen is soft. There is some right-sided abdominal tenderness to palpation. No guarding. Patient has normal bowel sounds. There is no abdominal distention. SKIN: Skin is warm and dry. NEURO: The patient is awake, alert, and oriented. The patient is cooperative. The patient has no focal neurologic deficits. The patient has normal speech. Cranial nerves II through XII grossly intact. MUSCULOSKELETAL: There is no tenderness or deformity. There is no limitation r jordin of motion. There is no evidence of acute injury. ED Course Vital Signs 09/08/18 09/08/18 09/08/18 08:44 09:20 09:45 Temperature 98.2 F Pulse Rate 73 79 Respiratory 16 16 16 Rate Blood Pressure 132/85 Blood Pressure 135/85 [Left] O2 Sat by Pulse 100 100 100 Oximetry ED Medical Decision Making - Lab Data Result diagrams: 09/08/18 09:59 09/08/18 09:59 - Radiology Data Radiology results: report reviewed CT ABDOMEN AND PELVIS WITHOUT CONTRAST INDICATION: Right flank pain. COMPARISON: 07/02/2018 CT. FINDINGS: Noncontrast abdomen and pelvis CT performed. LUNG BASES: Stable top normal heart size. Nonspecific distal esophageal mild air-filled prominence/thickening, not excluded for gastroesophageal reflux and/or hiatal hernia, amongst others. ABDOMEN: Please note that sensitivity to detect small visceral lesions is limited due to the absence of intravenous or oral contrast. Left hepatic lobe tip again wraps around the spleen in the left upper quadrant. Right hepatic lobe 17.2 cm in mid clavicular length. Otherwise grossly unremarkable unenhanced liver, spleen, gallbladder, pancreas, adrenals, aorta and IVC. Nonopacified GI tract evaluation limited, though grossly nonobstructive. A normal retrocecal appendix with its tip near the inferior margin of the liver, axial image 170, series 4. Mild to moderate stool seen throughout colon, more so proximally/possible constipation. No significant ascites or definite adenopathy. Specifically, the kidneys appear stable with somewhat lobulated contours, more so on the left. No hydronephrosis. Small bilateral extrarenal pelves. At least 4 right mid to lower renal calculi again noted, the largest 0.6 cm interpolar, axial image 129. Faint punctate left upper renal pole calyceal density may again be questioned on coronal image 72. PELVIS: Numerous pelvic phleboliths with grossly unremarkable uterus, adnexa and the urinary bladder. Rectosigmoid stool. No free fluid or significant adenopathy. No focal aggressive osseous lesions. CONCLUSION: No acute CT abnormality on this unenhanced exam or significant interval change in predominantly right nephrolithiasis, possible constipation and few other imaged lung bases and upper abdominal findings, amongst others, as described. Thank you for the opportunity to participate in this patient's care. Transcribed By: RS Dictated By: JONELLE KLELEY MD Electronically Authenticated By: JONELLE KELLEY MD Signed Date/Time: 09/08/[address] HEAD WITHOUT CONTRAST INDICATION: Headache. COMPARISON: None similar. FINDINGS: Noncontrast head CT demonstrates normal, symmetric ventricles and sulci without acute or recent infarct, hemorrhage, mass effect or midline shift. No abnormal extra-axial fluid collections. Posterior fossa structures and basilar cisterns within normal limits. Symmetric eye globes. Left sphenoid sinus 0.7 cm mucosal thickening or retention cyst noted posteriorly. Clear remainder imaged paranasal sinuses and mastoid air cells. Intact calvarium. Normal overlying scalp soft tissues. Few missing teeth suspected. CONCLUSION: No acute intracranial CT abnormality with left sphenoid sinus disease noted, as described. Please correlate. Thank you for the opportunity to participate in this patient's care. Transcribed By: RS Dictated By: JONELLE KELLEY MD Electronically Authenticated By: JONELLE KELLEY MD Signed Date/Time: 09/08/18 1023 - Medical Decision Making Patient presents with a complaint of right-sided abdominal and flank pain, as well as a headache. On examination she does not have any focal, motor or sensory deficits in her cranial nerves are intact. On examination she also has some reproducible right-sided abdominal pain to palpation. No guarding or rebound tenderness. Vital signs stable throughout her ED course. CT scan of the head did not show any bleed, shift, mass, ischemia or any other acute process. CT scan of the abdomin and pelvis also did not show any acute process. Labs were mostly unremarkable including a CBC, CMP, , lipase and urinalysis. Patient was given some Toradol for discomfort and Zofran for nausea. Upon reevaluation the patient is feeling improved. Prior to discharge the patient was seen ambulatory and both appeared and felt stable. She has good follow-up with a primary care physician and was given a referral for gastroenterology indication is to follow up regarding abdominal pain. She will return to the ER with any worsening of her symptoms or any acute distress. - Differential Diagnosis migraine headache, tension headache, gastritis, colitis, nephrolithiasis Critical Care Time: No Critical care attestation.: If time is entered above; I have spent that time in minutes in the direct care of this critically ill patient, excluding procedure time. ED Disposition Clinical Impression: Flank pain Headache Qualifiers: Headache type: unspecified Headache chronicity pattern: episodic headache Intractability: not intractable Qualified Code(s): R51 - Headache Disposition: DC-01 TO HOME OR SELFCARE Is pt being admited?: No Condition: Stable Instructions: Acute Headache (ED), Abdominal Pain (ED), Flank Pain (ED) Additional Instructions: Please follow up with a primary care physician. I'm giving her a referral for a local blood typer, Dr. Davila, to follow up regarding your abdominal pain. Return to the emergency Department with any worsening of your symptoms or any acute distress. Prescriptions: Ondansetron [Zofran Odt] 4 mg PO Q8HR PRN #12 tab.rapdis PRN Reason: Nausea Referrals: LOGAN DAVILA MD [Staff Physician] - 3-5 Days ANIL IVAN MD [Staff Physician] - 3-5 Days Time of Disposition: 11:43
[2018-09-08] MEDS ORDERED: TORADOL IV ONE (10:40)
--- NOTE | 2018-09-08 11:11 | Cat Scan Report ---
CT ABDOMEN AND PELVIS WITHOUT CONTRAST INDICATION: Right flank pain. COMPARISON: 07/02/2018 CT. FINDINGS: Noncontrast abdomen and pelvis CT performed. LUNG BASES: Stable top normal heart size. Nonspecific distal esophageal mild air-filled prominence/thickening, not excluded for gastroesophageal reflux and/or hiatal hernia, amongst others. ABDOMEN: Please note that sensitivity to detect small visceral lesions is limited due to the absence of intravenous or oral contrast. Left hepatic lobe tip again wraps around the spleen in the left upper quadrant. Right hepatic lobe 17.2 cm in mid clavicular length. Otherwise grossly unremarkable unenhanced liver, spleen, gallbladder, pancreas, adrenals, aorta and IVC. Nonopacified GI tract evaluation limited, though grossly nonobstructive. A normal retrocecal appendix with its tip near the inferior margin of the liver, axial image 170, series 4. Mild to moderate stool seen throughout colon, more so proximally/possible constipation. No significant ascites or definite adenopathy. Specifically, the kidneys appear stable with somewhat lobulated contours, more so on the left. No hydronephrosis. Small bilateral extrarenal pelves. At least 4 right mid to lower renal calculi again noted, the largest 0.6 cm interpolar, axial image 129. Faint punctate left upper renal pole calyceal density may again be questioned on coronal image 72. PELVIS: Numerous pelvic phleboliths with grossly unremarkable uterus, adnexa and the urinary bladder. Rectosigmoid stool. No free fluid or significant adenopathy. No focal aggressive osseous lesions. CONCLUSION: No acute CT abnormality on this unenhanced exam or significant interval change in predominantly right nephrolithiasis, possible constipation and few other imaged lung bases and upper abdominal findings, amongst others, as described. Thank you for the opportunity to participate in this patient's care.
[2018-09-08 11:41] VITALS: BP 127/76
== END 2018-09-08 12:14 | disposition home or self-care (01) ==
LOC: ED 08:37
DX: G43.909 Migraine, unspecified, not intractable, without status migrainosus (principal); R10.9 Unspecified abdominal pain; I10 Essential (primary) hypertension; Z79.899 Other long term (current) drug therapy; Z88.4 Allergy status to anesthetic agent
CPT/HCPCS: 36415; 70450; 74176; 80053; 81001; 81025; 83690; 85025; 96361; 96374; 96375; 99284; J1885; J2405; J7030

== ENCOUNTER 2018-12-05 05:55 | Emergency (ER) | payer MEDICAID ==
--- NOTE | 2018-12-05 08:58 | Emergency Department Report ---
ED General Adult HPI - General Chief complaint: Fever Stated complaint: NIGHT SWEATS Source: patient Mode of arrival: Ambulatory Limitations: No Limitations - History of Present Illness Initial comments: This is a 38-year-old -[place] female who presents with night sweats and a decrease in appetite for 2 days. Past medical history of sarcoidosis and hypertension. Patient states when her sarcoidosis flare usually effect her lungs. She moved here from [place] and don't have a Pulmonalgist and paraprofessional interpreter. She also complains of chills and wheezing. She is sleeping with a humidifier. Patient states she stopped smoking last year and thought it would improve symptoms. She stopped taken prednisone and methotrexate on her own 3-4 years ago. She denies fever, chest pain, shortness of breath. Onset/Timin -: days(s) Severity scale (0 -10): 5 Consistency: intermittent Improves with: none Worsens with: none Associated Symptoms: diaphoresis, fever/chills, loss of appetite. denies: conf usion, chest pain, cough, headaches, malaise, nausea/vomiting, rash, seizure, shortness of breath, syncope, weakness Treatments Prior to Arrival: none - Related Data Previous Rx's Medication Instructions Recorded Last Taken Type Vit-Fe Fumar-FA [ 1 tab PO QDAY #90 tablet 04/15/17 2 Days Ago Rx Vitamin] ~12/07/17 Ciprofloxacin HCl [Cipro] 500 mg PO BID 3 Days #6 tablet 05/06/18 Unknown Rx Ondansetron [Zofran Odt] 4 mg PO Q8H PRN #9 tab.rapdis 05/06/18 Unknown Rx Ibuprofen 600 mg PO Q8H PRN #20 tablet 06/20/18 Unknown Rx Ketorolac [Toradol] 10 mg PO Q6H PRN #12 tablet 07/02/18 Unknown Rx Sulfamethoxazole/Trimethoprim 1 each PO BID #14 tablet 07/02/18 Unknown Rx [Bactrim DS TAB] Ondansetron [Zofran Odt] 4 mg PO Q8HR PRN #12 tab.rapdis 09/08/18 Unknown Rx ALBUTEROL Inhaler(NF) [VENTOLIN 1 puff IH Q4-6H PRN #1 inha 12/05/18 Unknown Rx Inhaler(NF)] Prednisone [predniSONE 10 mg 10 mg PO .TAPER #1 tab.ds.pk 12/05/18 Unknown Rx (6-Day Pack, 21 Tabs)] Allergies Allergy/AdvReac Type Severity Reaction Status Date / Time codeine Allergy Hives Verified 06/20/18 16:21 ED Review of Systems ROS: Stated complaint: NIGHT SWEATS Other details as noted in HPI Constitutional: chills, diaphoresis. denies: fever ENT: denies: ear pain, throat pain Respiratory: denies: cough, shortness of breath, wheezing Cardiovascular: denies: chest pain, palpitations Gastrointestinal: denies: abdominal pain, nausea, diarrhea Skin: denies: rash, lesions Neurological: denies: headache, weakness, paresthesias Psychiatric: denies: anxiety, depression ED Past Medical Hx - Past Medical History Previous Medical History?: Yes Hx Hypertension: Yes (2013) Hx Congestive Heart Failure: No Hx Diabetes: No Hx Deep Vein Thrombosis: No Hx Renal Disease: Yes (kidney stones) Hx Sickle Cell Disease: No Hx Seizures: No Hx Kidney Stones: Yes Hx Asthma: No Hx COPD: No Hx HIV: No Additional medical history: Sarcoidosis - Surgical History Past Surgical History?: Yes Additional Surgical History: lithotripsy 2014 - Social History Smoking Status: Former Smoker Substance Use Type: None - Medications Home Medications: Home Medications Medication Instructions Recorded Confirmed Last Taken Type Vit-Fe Fumar-FA [ 1 tab PO QDAY #90 tablet 04/15/17 12/09/17 2 Days Ago Rx Vitamin] ~12/07/17 Ciprofloxacin HCl [Cipro] 500 mg PO BID 3 Days #6 tablet 05/06/18 Unknown Rx Ondansetron [Zofran Odt] 4 mg PO Q8H PRN #9 tab.rapdis 05/06/18 Unknown Rx Ibuprofen 600 mg PO Q8H PRN #20 tablet 06/20/18 Unknown Rx Ketorolac [Toradol] 10 mg PO Q6H PRN #12 tablet 07/02/18 Unknown Rx Sulfamethoxazole/Trimethoprim 1 each PO BID #14 tablet 07/02/18 Unknown Rx [Bactrim DS TAB] Ondansetron [Zofran Odt] 4 mg PO Q8HR PRN #12 tab.rapdis 09/08/18 Unknown Rx ALBUTEROL Inhaler(NF) [VENTOLIN 1 puff IH Q4-6H PRN #1 inha 12/05/18 Unknown Rx Inhaler(NF)] Prednisone [predniSONE 10 mg 10 mg PO .TAPER #1 tab.ds.pk 12/05/18 Unknown Rx (6-Day Pack, 21 Tabs)] ED Physical Exam - General Limitations: No Limitations General appearance: alert, in no apparent distress - ENT ENT exam: Present: mucous membranes moist - Respiratory Respiratory exam: Present: normal lung sounds bilaterally. Absent: respiratory distress - Cardiovascular Cardiovascular Exam: Present: regular rate, normal rhythm. Absent: systolic murmur, diastolic murmur, rubs, gallop - GI/Abdominal GI/Abdominal exam: Present: soft, normal bowel sounds. Absent: tenderness, guarding, rebound - Extremities Exam Extremities exam: Present: normal inspection - Neurological Exam Neurological exam: Present: alert, oriented X3 - Psychiatric Psychiatric exam: Present: normal affect, normal mood - Skin Skin exam: Present: warm, dry, intact, normal color. Absent: rash ED Course Vital Signs 12/05/18 06:03 Temperature 98.0 F Pulse Rate 82 Respiratory 18 Rate Blood Pressure 138/98 O2 Sat by Pulse 99 Oximetry ED Medical Decision Making - Lab Data Result diagrams: 12/05/18 09:08 12/05/18 10:11 Lab Results 12/05/18 12/05/18 12/05/18 Range/Units 09:05 09:08 10:11 WBC 4.4 L (4.5-11.0) K/mm3 RBC 4.03 (3.65-5.03) M/mm3 Hgb 12.7 (10.1-14.3) gm/dl Hct 38.2 (30.3-42.9) % MCV 95 (79-97) fl MCH 32 (28-32) pg MCHC 33 (30-34) % RDW 13.1 L (13.2-15.2) % Plt Count 213 (140-440) K/mm3 Lymph % (Auto) 27.3 (13.4-35.0) % [place] % (Auto) 8.0 H (0.0-7.3) % Eos % (Auto) 1.8 (0.0-4.3) % Baso % (Auto) 0.6 (0.0-1.8) % Lymph # 1.2 (1.2-5.4) K/mm3 [place] # 0.4 (0.0-0.8) K/mm3 Eos # 0.1 (0.0-0.4) K/mm3 Baso # 0.0 (0.0-0.1) K/mm3 Seg Neutrophils % 62.3 (40.0-70.0) % Seg Neutrophils # 2.8 (1.8-7.7) K/mm3 Sodium 134 L 135 L (137-145) mmol/L Potassium 5.9 H 4.1 D (3.6-5.0) mmol/L Chloride 104.3 97.8 L (98-107) mmol/L Carbon Dioxide 21 L 23 (22-30) mmol/L Anion Gap 15 18 mmol/L BUN 9 9 (7-17) mg/dL Creatinine 0.6 L 0.6 L (0.7-1.2) mg/dL Estimated GFR > 60 > 60 ml/min BUN/Creatinine Ratio 15 15 % Glucose 96 88 (65-100) mg/dL Calcium 8.8 9.0 (8.4-10.2) mg/dL - Radiology Data Radiology results: report reviewed CHEST 2 VIEWS INDICATION: Wheezing, night sweats. Patient states pulmonary sarcoidosis diagnosed in 2014. COMPARISON: None similar. FINDINGS: PA and lateral chest radiographs demonstrate normal cardiomediastinal silhouette. Slight superior retraction of the gia not entirely excluded. Slight left upper to mid lung scarring peripherally. Otherwise clear, well-expanded lungs without pleural effusions or CHF. Intact bones. CONCLUSION: No acute chest process, as described. - Medical Decision Making This is a 38 y.o. female that presents with night sweats and decreased appetite x 2 days. PMH of sarcoidosis and hypertension. Patient examined by me and stable. No distress noted. Vitals stable. Obtained BMP, CBC, & CXR. Potassium elevated, sample hemolyzed. Patient refused 2nd sample. There are no symptoms of hyperkalemia. All other labs unremarkable. Symptoms may be associated to sarcoidosis. We'll do a trial of prednisone and albuterol inhaler. Referral to PCP, rheumatology, and pulmonology. Discussed plan with patient and he agreed with plan to treat outpatient. Discharged home. Return to work tomorrow. Follow up with PCP in 48-72 hours. Critical care attestation.: If time is entered above; I have spent that time in minutes in the direct care of this critically ill patient, excluding procedure time. ED Disposition Clinical Impression: Decreased appetite, Diaphoresis, Hx of sarcoidosis Disposition: DC-01 TO HOME OR SELFCARE Is pt being admited?: No Does the pt Need Aspirin: No Condition: Stable Additional Instructions: Follow up with primary care doctor from the referrals list below. Prescriptions: Prednisone [predniSONE 10 mg (6-Day Pack, 21 Tabs)] 10 mg PO .TAPER #1 tab.ds.pk ALBUTEROL Inhaler(NF) [VENTOLIN Inhaler(NF)] 1 puff IH Q4-6H PRN #1 inha PRN Reason: Shortness Of Breath Referrals: [facility] [Outside] - 3-5 Days VANE DUQUE MD [Staff Physician] - 3-5 Days [facility] [Primary Care Provider] - 3-5 Days DALIA PALACIOS MD [Staff Physician] - 3-5 Days PADMINI DENNISON MD [Referring] - 3-5 Days GAETANO RAY MD [Referring] - 3-5 Days Forms: Work/School Release Form(ED) Time of Disposition: 10:44
[2018-12-05 09:15] LABS: Basophils % (Auto) 0.6 % (0.0-1.8); Eosinophils # (Auto) 0.1 K/mm3 (0.0-0.4); Eosinophils % (Auto) 1.8 % (0.0-4.3); Hematocrit 38.2 % (30.3-42.9); Hemoglobin 12.7 gm/dl (10.1-14.3); Lymphocytes # (Auto) 1.2 K/mm3 (1.2-5.4); Lymphocytes % (Auto) 27.3 % (13.4-35.0); Mean Corpuscular HGB Conc 33 % (30-34); Mean Corpuscular Volume 95 fl (79-97); Monocytes # (Auto) 0.4 K/mm3 (0.0-0.8); Platelet Count 213 K/mm3 (140-440); Red Blood Count 4.03 M/mm3 (3.65-5.03); Red Cell Distribution Width 13.1 % (13.2-15.2)
[2018-12-05 09:34] LABS: BUN/Creatinine Ratio 15; Blood Urea Nitrogen 9 mg/dL (7-17); Calcium 8.8 mg/dL (8.4-10.2); Hemolysis Index 223
--- NOTE | 2018-12-05 09:35 | XRay Report ---
CHEST 2 VIEWS INDICATION: Wheezing, night sweats. Patient states pulmonary sarcoidosis diagnosed in 2015. COMPARISON: None similar. FINDINGS: PA and lateral chest radiographs demonstrate normal cardiomediastinal silhouette. Slight superior retraction of the gia not entirely excluded. Slight left upper to mid lung scarring peripherally. Otherwise clear, well-expanded lungs without pleural effusions or CHF. Intact bones. CONCLUSION: No acute chest process, as described. Thank you for the opportunity to participate in this patient's care.
[2018-12-05 10:35] LABS: BUN/Creatinine Ratio 15; Blood Urea Nitrogen 9 mg/dL (7-17); Hemolysis Index 22
[2018-12-05 11:05] VITALS: BP 124/68
== END 2018-12-05 11:05 | disposition home or self-care (01) ==
LOC: ED 05:55
DX: R63.0 Anorexia (principal); R61 Generalized hyperhidrosis; R06.2 Wheezing; R68.83 Chills (without fever); I10 Essential (primary) hypertension; Z86.2 Personal history of diseases of the blood and blood-forming organs and certain disorders involving the immune mechanism; Z87.442 Personal history of urinary calculi; Z87.891 Personal history of nicotine dependence; Z88.5 Allergy status to narcotic agent
CPT/HCPCS: 36415; 71046; 80048; 85025

== ENCOUNTER 2019-03-15 16:03 | Emergency (ER) | payer MEDICAID ==
--- NOTE | 2019-03-15 16:12 | Event Note ---
ED Screening Note Date of service: 03/15/19 Time: 16:08 ED Screening Note: This is a 38 y.o. F. that presents with vaginal discharge and discomfort since yesterday. This initial assessment/diagnostic orders/clinical plan/treatment(s) is/are subject to change based on patients health status, clinical progression and re- assessment by fellow clinical providers in the ED. Further treatment and workup at subsequent clinical providers discretion. Patient/guardian urged not to elope from the ED as their condition may be serious if not clinically assessed and managed. Initial orders include: Labs
[2019-03-15 16:13] VITALS: BP 156/94
--- NOTE | 2019-03-15 17:17 | Emergency Department Report ---
ED Female HPI - General Chief complaint: Urogenital-Female Stated complaint: VAGINAL PAIN Time Seen by Provider: 03/15/19 16:07 Source: patient Mode of arrival: Ambulatory Limitations: No Limitations - History of Present Illness Initial comments: Patient is an 38-year-old female who presents to emergency room with complaints of vaginal pain that began yesterday. She has associated dysuria and yellow vaginal discharge. She states during sexual intercourse she feels like she sustained abrasions to her vagina due to the "condom being too dry." She denies any nausea, vomiting, fever, abdominal pain. States she has been using Vaseline in the vaginal area without much relief. She denies any STD history. She denies any past medical history. She states she has an allergy to codeine. Last menstrual cycle 03/07/2019. - Related Data Previous Rx's Medication Instructions Recorded Last Taken Type Vit-Fe Fumar-FA [ 1 tab PO QDAY #90 tablet 04/15/17 2 Days Ago Rx Vitamin] ~12/07/17 Ciprofloxacin HCl [Cipro] 500 mg PO BID 3 Days #6 tablet 05/06/18 Unknown Rx Ondansetron [Zofran Odt] 4 mg PO Q8H PRN #9 tab.rapdis 05/06/18 Unknown Rx Ibuprofen 600 mg PO Q8H PRN #20 tablet 06/20/18 Unknown Rx Ketorolac [Toradol] 10 mg PO Q6H PRN #12 tablet 07/02/18 Unknown Rx Sulfamethoxazole/Trimethoprim 1 each PO BID #14 tablet 07/02/18 Unknown Rx [Bactrim DS TAB] Ondansetron [Zofran Odt] 4 mg PO Q8HR PRN #12 tab.rapdis 09/08/18 Unknown Rx ALBUTEROL Inhaler(NF) [VENTOLIN 1 puff IH Q4-6H PRN #1 inha 12/05/18 Unknown Rx Inhaler(NF)] Prednisone [predniSONE 10 mg 10 mg PO .TAPER #1 tab.ds.pk 12/05/18 Unknown Rx (6-Day Pack, 21 Tabs)] Doxycycline Hyclate [Doxycycline 100 mg PO BID 10 Days #20 tab 03/15/19 Unknown Rx Hyclate TAB] Allergies Allergy/AdvReac Type Severity Reaction Status Date / Time codeine Allergy Hives Verified 06/20/18 16:21 ED Review of Systems ROS: Stated complaint: VAGINAL PAIN Other details as noted in HPI Comment: All other systems reviewed and negative ED Past Medical Hx - Past Medical History Hx Hypertension: Yes (2013) Hx Congestive Heart Failure: No Hx Diabetes: No Hx Deep Vein Thrombosis: No Hx Renal Disease: Yes (kidney stones) Hx Sickle Cell Disease: No Hx Seizures: No Hx Kidney Stones: Yes Hx Asthma: No Hx COPD: No Hx HIV: No Additional medical history: Sarcoidosis, thyroid disease - Surgical History Additional Surgical History: lithotripsy 2014 - Social History Smoking Status: Current Every Day Smoker Substance Use Type: None - Medications Home Medications: Home Medications Medication Instructions Recorded Confirmed Last Taken Type Vit-Fe Fumar-FA [ 1 tab PO QDAY #90 tablet 04/15/17 12/09/17 2 Days Ago Rx Vitamin] ~12/07/17 Ciprofloxacin HCl [Cipro] 500 mg PO BID 3 Days #6 tablet 05/06/18 Unknown Rx Ondansetron [Zofran Odt] 4 mg PO Q8H PRN #9 tab.rapdis 05/06/18 Unknown Rx Ibuprofen 600 mg PO Q8H PRN #20 tablet 06/20/18 Unknown Rx Ketorolac [Toradol] 10 mg PO Q6H PRN #12 tablet 07/02/18 Unknown Rx Sulfamethoxazole/Trimethoprim 1 each PO BID #14 tablet 07/02/18 Unknown Rx [Bactrim DS TAB] Ondansetron [Zofran Odt] 4 mg PO Q8HR PRN #12 tab.rapdis 09/08/18 Unknown Rx ALBUTEROL Inhaler(NF) [VENTOLIN 1 puff IH Q4-6H PRN #1 inha 12/05/18 Unknown Rx Inhaler(NF)] Prednisone [predniSONE 10 mg 10 mg PO .TAPER #1 tab.ds.pk 12/05/18 Unknown Rx (6-Day Pack, 21 Tabs)] Doxycycline Hyclate [Doxycycline 100 mg PO BID 10 Days #20 tab 03/15/19 Unknown Rx Hyclate TAB] ED Physical Exam - General Limitations: No Limitations General appearance: alert, in no apparent distress - Head Head exam: Present: atraumatic, normocephalic - Eye Eye exam: Present: normal appearance - ENT ENT exam: Present: mucous membranes moist - Respiratory Respiratory exam: Present: normal lung sounds bilaterally. Absent: respiratory distress, wheezes, rales, rhonchi, stridor, accessory muscle use, decreased breath sounds, prolonged expiratory - Cardiovascular Cardiovascular Exam: Present: regular rate, normal rhythm, normal heart sounds. Absent: systolic murmur, diastolic murmur, rubs, gallop - GI/Abdominal GI/Abdominal exam: Present: soft, normal bowel sounds. Absent: distended, tenderness, guarding, rigid - External exam: Present: other (on exam: small abrasions, shallow ulcerations to the inside of the labia, painful to touch, discharge surrounding the abrasions, no laceration present, negotiations director: MINO Mckenzie) Speculum exam: Present: vaginal discharge (copious amounts of yellow discharge), cervical discharge (copious amounts of yellow discharge ). Absent: erythema, vaginal bleeding, foreign body, tissue, laceration Bi-manual exam: Present: normal bi-manual exam. Absent: cervical motion tendernes, adnexal tenderness, adnexal mass - Back Exam Back exam: Absent: CVA tenderness (R), CVA tenderness (L) - Neurological Exam Neurological exam: Present: alert, oriented X3 - Psychiatric Psychiatric exam: Present: normal affect, normal mood - Skin Skin exam: Present: warm, dry, intact ED Course Vital Signs 03/15/19 16:08 Temperature 97.9 F Pulse Rate 125 H Respiratory 18 Rate Blood Pressure 156/94 O2 Sat by Pulse 100 Oximetry ED Medical Decision Making - Medical Decision Making Patient is an 38-year-old female who presents to emergency room with complaints of vaginal pain that began yesterday. She has associated dysuria and yellow v aginal discharge. She states during sexual intercourse she feels like she sustained abrasions to her vagina due to the "condom being too dry." She denies any nausea, vomiting, fever, abdominal pain. States she has been using Vaseline in the vaginal area without much relief. She denies any STD history. She denies any past medical history. She states she has an allergy to codeine. Last menstrual cycle 03/07/2019. on exam: on exam: small abrasions, shallow ulcerations to the inside of the labia, painful to touch, discharge surrounding the abrasions, no laceration present, negotiations director: MINO Mckenzie copious amounts of yellow discharge. UA with many WBCs and leukocyte esterase. wet prep shows PMNs. G/C sent. no evidence of PID on exam, no abd tenderness no CVAT. pt given azithromycin while in the ED. pt did not want the ceftriaxone injection and states she is afraid of needles. pt given doxycycline. discussed with pt that she needed to see an MACHINE REBUILDER or health department for a further STD workup. advised pt to please take medication as prescribed to completion. Check back with medical records in 1 week for results of your tests. Have your partner tested and treated as well. Follow-up with a MACHINE REBUILDER in the next 2-3 days. Return to the emergency room for any new or worsening symptoms. please abstain from sexual intercourse for 2 weeks. - Differential Diagnosis STD, UTI, vaginitis, BV, yeast, trichomonas Critical care attestation.: If time is entered above; I have spent that time in minutes in the direct care of this critically ill patient, excluding procedure time. ED Disposition Clinical Impression: Vaginal pain, Vaginal discharge Vaginitis Qualifiers: Chronicity: acute Qualified Code(s): N76.0 - Acute vaginitis Disposition: TO HOME OR SELFCARE Is pt being admited?: No Does the pt Need Aspirin: No Condition: Stable Instructions: Vaginitis (ED) Additional Instructions: Please take medication as prescribed to completion. Check back with medical records in 1 week for results of your tests. Have your partner tested and treated as well. If concerned for any other STDs please be seen by the health department or MACHINE REBUILDER. Follow-up with a MACHINE REBUILDER in the next 2-3 days. Return to the emergency room for any new or worsening symptoms. please abstain from sexual intercourse for 2 weeks. Prescriptions: Doxycycline Hyclate [Doxycycline Hyclate TAB] 100 mg PO BID 10 Days #20 tab Referrals: ADRIAN ROSE MD [Primary Care Provider] - 2-3 Days [facility] [Provider Group] - 2-3 Days Time of Disposition: 18:15 Print Language: PALAUAN
[2019-03-15] MEDS ORDERED: ROCEPHIN IM ONE (17:27)
[2019-03-15] MEDS ORDERED: ZITHROMAX PO ONE (17:27)
[2019-03-15 17:55] LABS: Bilirubin,Urine NEG (Negative); Blood,Urine SM (Negative); Color,Urine Yellow (Yellow); Mucus,Urine FEW /HPF; Urobilinogen,Urine < 2.0 mg/dL (<2.0)
[2019-03-15 17:57] LABS: HCG Qualitative,Urine Negative (Negative)
[2019-03-15] MEDS: XYLOCAINE 1% MPF 5 mL INFILTRATI ONE ×2 (18:20→18:21)
== END 2019-03-15 18:33 | disposition home or self-care (01) ==
LOC: ED 16:03
DX: N76.0 Acute vaginitis (principal); I10 Essential (primary) hypertension; D86.9 Sarcoidosis, unspecified; F17.200 Nicotine dependence, unspecified, uncomplicated; Z79.899 Other long term (current) drug therapy; Z87.442 Personal history of urinary calculi; Z88.5 Allergy status to narcotic agent
CPT/HCPCS: 81001; 81025; 87210; 87591; 99284; J0696